=== PATIENT | female | born 1995 | race Caucasian/White ===

== ENCOUNTER 2020-10-10 14:17 | Emergency (ER) | payer BC, SELFPAY ==
--- NOTE | 2020-10-10 15:06 | PC.NURSE ---
upon calling pt to triage - refused triage - states I have 3 kids at home I need to take care of, a ride is coming for me
== END 2020-10-10 15:06 | disposition left against medical advice (07) ==
DX: Z53.21 Procedure and treatment not carried out due to patient leaving prior to being seen by health care provider (principal)
CPT/HCPCS: 99199

== ENCOUNTER 2020-10-13 19:54 | Emergency (ER) | payer BC, SELFPAY ==
--- NOTE | ~2020-10-13 | CT_ITS ---
EXAMINATION: CT brain wo con DATE: 10/13/2020 20:55 INDICATION: Generalized headache. TECHNIQUE: Computed tomography (CT) of the head was performed without intravenous contrast. The mA wa s adjusted according to patient size. Iterative reconstruction technique was employed. The dose-lengt h product was 605.33 mGy-cm. COMPARISON: None FINDINGS: There is no intracranial hemorrhage, acute infarction, or abnormal intracranial mass lesion . The ventricles are normal in size. There is mucosal thickening in the ethmoid sinuses. The orbits a re normal. The mastoid air cells are normal. IMPRESSION: 1. Normal brain. Reviewed, dictated and finalized at location A. IMPRESSION: 1. Normal brain.
--- NOTE | ~2020-10-13 | XR_ITS ---
EXAMINATION: XR chest 2V DATE: 10/13/2020 21:00 INDICATION: Shortness of breath. TECHNIQUE: Frontal and lateral views of the chest were obtained. COMPARISON: Chest 2 views 12/19/2018 FINDINGS: The chest demonstrates clear lungs without pneumonia, pleural effusion, or pneumothorax. Th e heart size is normal. Surgical clips in the right upper quadrant are likely from cholecystectomy. IMPRESSION: 1. No acute cardiopulmonary disease. Reviewed, dictated and finalized at location A.
[2020-10-13 19:56] VITALS: BP 117/77; PULSE 116; RESP 18; TEMP 39.1; O2SAT 100
[2020-10-13 21:00] LABS: Basophils Percent Auto 0.4 % (0.2-1.2); Eosinophils Percent Auto 0.2 % (0-4.4); Hematocrit 40.5 % (37.0-47.0); Immature Granulocyte Absolute 0.04 K/mm3 (0.00-0.031); Immature Granulocyte Percent A 0.4 % (0-0.5); Lymphocytes Absolute Auto 1.57 K/mm3 (0.9-3.2); Mean Corpuscular HGB Conc 32.1 g/dl (32-36); Mean Corpuscular Hemoglobin 25.2 pg (26-34); Mean Corpuscular Volume 78.5 fl (80-100); Mean Platelet Volume 9.6 fl (7.4-10.4); Monocytes Absolute Auto 1.3 K/mm3 (0.1-0.6); Monocytes Percent Auto 12.2 % (2.6-8.5); Neutrophils Absolute Auto 7.5 K/mm3 (1.3-6.7); Neutrophils Percent Auto 71.8 % (45.5-73.1); Platelet Count Result 327 k/mm3 (150-375); Red Blood Count 5.16 M/mm3 (4.2-5.4); Red Cell Distribution Width 15.4 % (11.5-14.5); White Blood Count 10.5 K/mm3 (4.5-10.0)
[2020-10-13 21:11] LABS: Lactic Acid Reflex 1.3 mmol/L (0.7-2.1)
[2020-10-13 21:18] LABS: Alanine Aminotransferase 74 U/L (4-35); Albumin Level 4.7 g/dL (3.5-5.1); Alkaline Phosphatase 105 U/L (38-126); Anion Gap 13 mmol/L (8-16); Aspartate Amino Transferase 64 U/L (14-36); Bilirubin,Total 0.8 mg/dL (0.2-1.3); Blood Urea Nitrogen 16 mg/dL (7-17); Calcium 9.8 mg/dL (8.4-10.2); Carbon Dioxide 26 mmol/L (22-30); Chloride 94 mmol/L (98-107); Estimated Glomerular Filt Rate > 60; Glucose 99 mg/dL (65-110); Potassium 3.8 mmol/L (3.4-5.0); Sodium 133 mmol/L (137-145)
[2020-10-13] MEDS: SODIUM CHLORIDE 0.9% IV 1,000 ML 999 ML IV CONT ×2 (21:18→23:21)
[2020-10-13] MEDS: PROCHLORPERAZINE EDISYLATE 10 MG/2 ML VIAL IV PUSH (21:18)
--- NOTE | 2020-10-13 21:29 | ED.FEVER ---
HPI - Fever General Chief Complaint: Fever Stated Complaint: backache, headache, fever 102 Time Seen by Provider: 10/13/20 20:20 History of Present Illness HPI Narrative: Patient presents with headache, fever, back pain, cough, shortness of breath. Patient is also reporting diffuse body aches. Reports has had symptoms for the past week and has been getting progressively worse and she can no longer take it so she came in for evaluation. Her headache is achy, constant, worse with bright lights or loud noises does radiate to her neck. She also reports right lower back pain and suprapubic abdominal pain. She denies urinary symptoms. She denies focal chest pain but does report some shortness of breath and cough. She reports multiple prior orthopedic surgeries and history of gastritis but does not take medications on a regular basis Related Data Allergies Allergy/AdvReac Type Severity Reaction Status Date / Time bee venom protein (honey bee) Allergy Anaphylaxis Verified 12/19/18 16:49 morphine Allergy ITCH Verified 02/12/13 23:58 Review of Systems Review of Systems: CONSTITUTIONAL: Reports fevers and chills EYES: Denies visual changes, redness, or discharge. ENT: Denies rhinorrhea, congestion, sore throat, or otalgia. CARDIOVASCULAR: Denies chest pain, palpitations, or edema. RESPIRATORY: Patient ports cough and shortness of breath GASTROINTESTINAL: Denies nausea, vomiting, or diarrhea. GENITOURINARY: Denies dysuria or hematuria. SKIN: Denies rash or itching. MUSCULOSKELETAL: Reports low back pain and diffuse myalgia NEUROLOGIC: Denies numbness, dizziness, or weakness. PSYCHIATRIC: Denies anxiety or depression. All systems reviewed & are unremarkable except as noted in HPI and below PMFSH Past Medical History Medical History (Updated 10/14/20 @ 01:06 by Felipe Leiva MD) Bilateral ankle fractures Toe fracture UTI (urinary tract infection) Wears glasses Wrist fracture, bilateral Surgical History Surgical History History of cholecystectomy Hx of bilateral hip replacements Hx of section x3 Social History Social History Smoking status: Never smoker Alcohol intake: never Substance use type: marijuana Gender identity (if verbalized by the patient): Female Exam Narrative: GENERAL: Well-appearing, well-nourished, and in no acute distress. HEAD: Normocephalic, atraumatic. EYES: PERRLA and EOMI. ENT: Nares clear, no rhinorrhea or epistaxis. Mucous membranes moist. NECK: Supple. No masses. No JVD CHEST: Clear to auscultation. No respiratory distress. No wheezes rales or rhonchi HEART: Regular tachycardia. No murmur heard. Normal peripheral pulses. ABDOMEN: Mild suprapubic tenderness soft, nondistended, normal active bowel sounds. BACK: CVA tenderness on the right EXTREMITIES: Normal range of motion. No edema. SKIN: Warm, dry, no rash. NEURO: Cranial nerves II through XII are intact 5 out of 5 strength in all extremities sensation intact to light touch in all extremities alert and oriented x3. PSYCH: Normal mood and affect. Course Reevaluation(s) Reevaluation #1: Patient is sleeping comfortably easily aroused reports feeling improved. Outpatient plan discussed with patient she is comfortable with outpatient antibiotics. Date: 10/14/20 Time: 01:04 Vital Signs Vital signs: Vital Signs Temperature 39.1 C H 10/13/20 19:56 Pulse Rate 116 H 10/13/20 19:56 Respiratory Rate 18 10/13/20 19:56 Blood Pressure 117/77 10/13/20 19:56 Pulse Oximetry 100 10/13/20 19:56 Temperature 36.9 C 10/13/20 22:24 Pulse Rate 77 10/14/20 01:38 Respiratory Rate 18 10/14/20 01:38 Blood Pressure 101/64 10/14/20 01:38 Pulse Oximetry 98 10/14/20 01:38 MDM - Fever MDM Narrative Medical decision making narrative: H&P as above, vss, pt looks clinically well, exam with mild CVA ten
[2020-10-13 22:14] LABS: CRP 38.9 mg/dL (<1.0)
[2020-10-13 22:24] VITALS: BP 105/62; PULSE 89; RESP 18; TEMP 36.9; O2SAT 98
[2020-10-13 23:19] VITALS: BP 110/68; PULSE 73; RESP 16; O2SAT 95
[2020-10-14 00:21] VITALS: BP 100/65; PULSE 69; RESP 16; O2SAT 100
[2020-10-14 00:25] LABS: Add Urine Microscopic? YES; Appearance Urine Clear (Clear); Bacteria Urine Trace /hpf; Bilirubin Urine Negative (Negative); Blood Urine 1+ (Negative); Color Urine Yellow (Yellow); Glucose Urine UA Negative (Negative); Ketones Urine Negative (Negative); Leukocyte Esterase Ur Trace LEU/UL (Negative); Nitrate Urine Negative (Negative); Protein Urine 1+ mg/dL (Negative); Specific Grav Ur 1.012 (1.001-1.035); Squamous Epithelial Cell Urine Rare /hpf (Few)
[2020-10-14 00:57] LABS: EDCOVIDSCREEN Negative (Negative)
[2020-10-14 01:38] VITALS: BP 101/64; PULSE 77; RESP 18; O2SAT 98
== END 2020-10-14 02:09 | disposition home or self-care (01) ==
PROVIDERS: Emergency Provider Emergency Medicine
DX: R51.9 Headache, unspecified (principal); N12 Tubulo-interstitial nephritis, not specified as acute or chronic; Z20.822 Contact with and (suspected) exposure to COVID-19; Z87.440 Personal history of urinary (tract) infections; Z96.643 Presence of artificial hip joint, bilateral
CPT/HCPCS: 36415; 70450; 71046; 80053; 81001; 83605; 85025; 86140; 87040; 87077; 87086; 87426; 96361; 96365; 96375; 99284; C9803; J0131; J0780; J7030

== ENCOUNTER 2024-07-17 15:12 | Inpatient (IN) | payer BC, SELFPAY ==
[2024-07-17] VITALS (18 sets, daily range): BP systolic 113–135; BP diastolic 72–95; PULSE 100–107; RESP 13–17; TEMP 34.6–36.7; O2SAT 95–100; BMI 22.8
--- NOTE | ~2024-07-17 | XR_ITS ---
EXAMINATION: XR chest 1V portable Exam Date/Time: 07/17/2024 15:20 CDT HISTORY: AMS Comparison: 10/13/2020. RESULT: Lines, tubes, and devices: Cholecystectomy clips. Lungs and pleura: Clear. Cardiomediastinal silhouette: Stable. Other: No acute osseous or upper abdominal finding. IMPRESSION: No acute cardiopulmonary process. Reviewed, dictated and finalized at location K.
--- NOTE | ~2024-07-17 | CT_ITS ---
EXAMINATION: CT facial & cervical spine wo DATE: 07/17/2024 16:49 INDICATION: trauma TECHNIQUE: Computed tomography (CT) of the maxillofacial region and cervical spine was performed with out intravenous contrast. Automated exposure control and iterative reconstruction technique were empl oyed. The dose-length product was 345.90 mGy-cm. COMPARISON: None FINDINGS: CERVICAL: The head is tilted and rotated significantly towards the left. Initial imaging of the face excluded p ortions of the face from the [id number] and repeat images were obtained. Vertebral Body Alignment: Intact. Craniocervical and atlantoaxial alignment: No significant degenerative change. Alignment intact. Osseous structures/fracture: No evidence of a lytic or blastic process in the visualized spine. No e vidence of acute fracture. Cervical soft tissues: The paraspinal soft tissues planes are maintained. Enlarged bilateral palatine tonsils. Small area of centrilobular groundglass opacities in the right upper lobe. Degenerative changes: No significant degenerative changes. FACE: Soft Tissues: Small left frontal hematoma. Facial bones: No acute fracture. No lytic or blastic process. Eyes: The globes are intact. The soft tissue planes of the orbits are maintained. Paranasal Sinuses: Ethmoid and right maxillary mucosal thickening, with likely obstruction of the ri ght OMU. Foreign Bodies: No radiopaque foreign bodies. Other Findings: Dental caries and periodontal disease. IMPRESSION: No acute fracture or traumatic malalignment in the cervical spine. No acute facial bone fracture. Centrilobular ground glass opacities in the right upper lobe, may represent a focus of infection/infl ammation. Dental caries and periodontal disease. [place] tonsillar enlargement. Mucoperiosteal sinus disease with right OMU obstruction. Reviewed, dictated and finalized at location K. IMPRESSION: No acute fracture or traumatic malalignment in the cervical spine. No acute fac ial bone fracture. Centrilobular ground glass opacities in the right upper lobe, may represent a f ocus of infection/inflammation. Dental caries and periodontal disease. [place] tonsillar enlargement. Mucoperiosteal sinus disease with right OMU obstruction.
--- NOTE | ~2024-07-17 | CT_ITS ---
EXAMINATION: CT brain wo con DATE: 07/17/2024 16:36 INDICATION: AMS . TECHNIQUE: Computed tomography (CT) of the head was performed without intravenous contrast. The mA wa s adjusted according to patient size. Iterative reconstruction technique was employed. The dose-lengt h product was 681.00 mGy-cm. COMPARISON: 10/13/2020. FINDINGS: Exam limited by oblique, nonstandard positioning and rotation. No acute intracranial hemorrhage or extra-axial fluid collection. No hydrocephalus, mass, or herniation. No acute ischemic infarct. Unremarkable dural venous sinus attenuation. No acute osseous abnormality. Bilateral ethmoid and right maxillary mucosal thickening, the remaining aerated spaces are clear. IMPRESSION: No acute intracranial process. Reviewed, dictated and finalized at location K.
--- NOTE | 2024-07-17 15:33 | ECG_ITS ---
Test Date: 2024-07-17 15:33:59 Measurements Intervals [place] Rate: 99 P: 78 [place]: 119 QRS: 78 QRSD: 109 T: 47 QT: 370 QTc: 476 Interpretive Statements SINUS RHYTHM WITH SHORT [place] INTERVAL POSSIBLE LEFT ATRIAL ENLARGEMENT BORDERLINE ST-T WAVE ABNORMALITY- INFERIOR LEADS BASELINE ARTIFACT- I, II, III, AVR, AVL, AVF, V1-V2 BORDERLINE ECG No previous ECG available for comparison Electronically Signed On 07-18-2024 07:13:59 CDT by Shahbaz Melara D.O.
[2024-07-17 15:34] LABS: Glucose Point of Care 131 mg/dl (65-105)
[2024-07-17 15:36] LABS: BEDSIDEPREGUCG Negative (Negative)
[2024-07-17 15:39] LABS: Basophils Percent Auto 0.5 % (0.2-1.2); Eosinophils Percent Auto 0.4 % (0-4.4); Hematocrit 40.1 % (37.0-47.0); Hemoglobin 12.4 g/dL (12.0-15.0); Immature Granulocyte Absolute 0.03 K/mm3 (0.00-0.031); Immature Granulocyte Percent A 0.4 % (0-0.5); Lymphocytes Absolute Auto 2.31 K/mm3 (0.9-3.2); Mean Corpuscular HGB Conc 30.9 g/dl (32-36); Mean Corpuscular Hemoglobin 25.8 pg (26-34); Mean Corpuscular Volume 83.5 fl (80-100); Mean Platelet Volume 9.4 fl (7.4-10.4); Monocytes Absolute Auto 0.4 K/mm3 (0.1-0.6); Monocytes Percent Auto 4.8 % (2.6-8.5); Neutrophils Absolute Auto 5.8 K/mm3 (1.3-6.7); Neutrophils Percent Auto 66.9 % (45.5-73.1); Platelet Count Result 389 k/mm3 (150-375); Red Cell Distribution Width 15.4 % (11.5-14.5); White Blood Count 8.6 K/mm3 (4.5-10.0)
--- NOTE | 2024-07-17 15:41 | ED.GENADULT ---
HPI - General Adult General Chief complaint: Overdose Stated complaint: responsive to painful stimuli History of Present Illness HPI narrative: Patient is a 29-year-old female who presents ER with altered mental status. Significant other heard a crash upstairs at 3:30 p.m.. He has been pouring water on her to try to wake her up but she has remained unresponsive. She localizes to noxious stimuli and is moaning. She has history of fentanyl abuse and receive 4 mg of Narcan by EMS without any change in status. There is some bruising to left face and blood intraorally from the fall. Patient hypothermic on arrival. Related Data Allergies Allergy/AdvReac Type Severity Reaction Status Date / Time bee venom protein (honey bee) Allergy Anaphylaxis Verified 12/19/18 16:49 morphine Allergy ITCH Verified 02/12/13 23:58 Review of Systems Review of Systems: ROS unobtainable: Yes unobtainable due to mental status PMFSH Past Medical History Medical History (Updated 07/17/24 @ 17:59 by Kwaku Bains MD) Wrist fracture, bilateral Bilateral ankle fractures Toe fracture UTI (urinary tract infection) Wears glasses Surgical History Surgical History Hx of bilateral hip replacements Hx of section x3 History of cholecystectomy Social History Social History Smoking status: Never smoker Alcohol intake: never Substance use type: other Gender identity (if verbalized by the patient): Female Exam Narrative: GENERAL: Ill-appearing, well-nourished, and in no acute distress. HEAD: Normocephalic, contusion left forehead and supraorbital ridge.. EYES: PERRL and EOMI. ENT: Mucous membranes moist. Small puncture left lateral upper lip near the buccal margin without loose dentition or obvious new dental fracture. NECK: Supple. CHEST: Clear to auscultation. No respiratory distress. HEART: Tachycardic and regular. Normal peripheral pulses. ABDOMEN: Soft, nontender, nondistended. EXTREMITIES: Normal range of motion. No edema. SKIN: Warm, dry, no rash. NEURO: Patient is another weight neuro alert but she repositions herself moving all extremities on her own. She moans and localizes to noxious stimuli. Course Course Emergency Course: 1757: Patient accepted to the ICU by Dr. Grewal. He request patient have Zosyn for antibiotic coverage of the possible infiltrate in the lung and also would like the patient be on 0.45% normal saline with 20 mEq of potassium at a rate of 100 mL/hr. 1818: Accepted by hospitalist service. Vital Signs Vital signs: Vital Signs Temperature 94.9 F L 07/17/24 15:11 Pulse Rate 100 07/17/24 15:11 Respiratory Rate 13 07/17/24 15:11 Blood Pressure 120/78 07/17/24 15:11 Pulse Oximetry 98 07/17/24 15:11 Oxygen Delivery Room Air 07/17/24 15:11 Temperature 95.2 F L 07/17/24 16:38 Pulse Rate 4 L 07/17/24 15:34 Respiratory Rate 15 07/17/24 15:34 Blood Pressure 113/84 07/17/24 15:34 Pulse Oximetry 100 07/17/24 15:34 Oxygen Delivery Room Air 07/17/24 15:11 Medical Decision Making Vital Signs Vital Signs: Vital Signs Temperature 94.9 F L 07/17/24 15:11 Pulse Rate 100 07/17/24 15:11 Respiratory Rate 13 07/17/24 15:11 Blood Pressure 120/78 07/17/24 15:11 Pulse Oximetry 98 07/17/24 15:11 Oxygen Delivery Room Air 07/17/24 15:11 Temperature 95.2 F L 07/17/24 16:38 Pulse Rate 4 L 07/17/24 15:34 Respiratory Rate 15 07/17/24 15:34 Blood Pressure 113/84 07/17/24 15:34 Pulse Oximetry 100 07/17/24 15:34 Oxygen Delivery Room Air 07/17/24 15:11 Lab Data 07/17/24 15:33 07/17/24 15:33 Labs: Lab Results 07/17/24 07/17/24 07/17/24 Range/Units 15:21 15:33 16:58 WBC 8.6 (4.5-10.0) K/mm3 RBC 4.80 (4.2-5.4) M/mm3 Hgb 12.4 (12.0-15.0) g/dL Hct 40.1 (37.0-47.0) % MCV 83.5 (80-100) fl MCH 25.8 L (26-34) pg MCHC 30.9 L (32-36) g/dl RDW 15.4 H (11.5-14.5) % Plt Count 389 H (150-375) k/mm3 MPV 9.4 (7.4-10.4) fl Immature Gran % (Auto) 0.4 (0-0.5) % Neut % (Auto) 66.9 (45.5-73.1) % Lymph % (Auto) 27.0 (18.3-44.2) % [place] % (Auto) 4.8 (2.6-8.5) % Eos % (Auto) 0.4 (0-4.4) % Baso % (Auto) 0.5 (0.2-1.2) % Lymph # (Auto) 2.31 (0.9-3.2) K/mm3 [place] # (Auto) 0.4 (0.1-0.6) K/mm3 Eos # (Auto) 0.0 (0-0.3) K/mm3 Baso # (Auto) 0.0 (0.0-0.1) K/mm3 Abs Immat Gran (auto) 0.03 (0.00-0.031) K/mm3 Absolute Neuts (auto) 5.8 (1.3-6.7) K/mm3 Absolute Nucleated RBC 0.000 (0.0-0.012) K/mm3 Nucleated RBC % 0.0 (0.0-0.2) % PT 14.1 (11.1-14.7) Seconds INR 1.1 APTT 24.3 (22.3-36.8) Seconds Methemoglobin 0.1 (0-1.5) %THb Sodium 139 (137-145) mmol/L Potassium 3.5 (3.4-5.0) mmol/L Chloride 105 (98-107) mmol/L Carbon Dioxide 19 L (22-30) mmol/L Anion Gap 15 H (4-12) mmol/L BUN 19 H (7-17) mg/dL Creatinine 0.93 (0.7-1.0) mg/dL Estim Creat Clear Calc Not Reportable Estimated GFR > 60 (59 - ) Glucose 156 H (65-110) mg/dL POC Capillary Glucose 131 H (65-105) mg/dl Lactic Acid 5.5 H* (0.7-2.0) mmol/L Calcium 9.1 (8.4-10.2) mg/dL Total Bilirubin 0.6 (0.2-1.3) mg/dL AST 37 H (14-36) U/L ALT 23 (6-35) U/L Alkaline Phosphatase 44 (38-126) U/L Ammonia Total Protein 8.0 (6.3-8.2) g/dL Albumin 4.6 (3.5-5.1) g/dL TSH 1.720 (0.465-4.680) uIU/mL Urine Color Yellow (Yellow) Urine Appearance Clear (Clear) Urine pH 6.0 (5.0-9.0) Ur Specific [place] 1.029 (1.001-1.035) Urine Protein 1+ H (Negative) mg/dL Urine Glucose (UA) Negative (Negative) mg/dL Urine Ketones Negative (Negative) mg/dL Ur Blood (Man) 2+ H (Negative) Urine Nitrate Negative (Negative) Urine Bilirubin Negative (Negative) Urine Urobilinogen 0.2 (<2.0) mg/dL Leukocyte Esterase Rfl Negative (Negative) GENNARO/UL Urine RBC 21-50 H (0-2) /hpf Urine WBC 0-5 (0-3) /hpf Ur Squamous Epith Cells Occasional (Few) /hpf Urine Bacteria Rare /hpf Urine Casts 0-2 POC Urine HCG, Qual Negative (Negative) Nasal MRSA (PCR) Salicylates < 1.0 L (2-20) mg/dL Urine Opiates Screen Negative (Negative) Urine Methadone Screen Negative (Negative) Acetaminophen < 10 L (10-30) ug/mL Ur Barbiturates Screen Negative (Negative) Ur Phencyclidine Scrn Negative (Negative) Ur Amphetamine Screen Positive A (Negative) U Benzodiazepines Scrn Negative (Negative) Urine Cocaine Screen Negative (Negative) U Cannabinoids Screen Negative (Negative) Ethyl Alcohol < 10 (<10) mg/dL 07/17/24 Range/Units 18:03 WBC (4.5-10.0) K/mm3 RBC (4.2-5.4) M/mm3 Hgb (12.0-15.0) g/dL Hct (37.0-47.0) % MCV (80-100) fl MCH (26-34) pg MCHC (32-36) g/dl RDW (11.5-14.5) % Plt Count (150-375) k/mm3 MPV (7.4-10.4) fl Immature Gran % (Auto) (0-0.5) % Neut % (Auto) (45.5-73.1) % Lymph % (Auto) (18.3-44.2) % [place] % (Auto) (2.6-8.5) % Eos % (Auto) (0-4.4) % Baso % (Auto) (0.2-1.2) % Lymph # (Auto) (0.9-3.2) K/mm3 [place] # (Auto) (0.1-0.6) K/mm3 Eos # (Auto) (0-0.3) K/mm3 Baso # (Auto) (0.0-0.1) K/mm3 Abs Immat Gran (auto) (0.00-0.031) K/mm3 Absolute Neuts (auto) (1.3-6.7) K/mm3 Absolute Nucleated RBC (0.0-0.012) K/mm3 Nucleated RBC % (0.0-0.2) % PT (11.1-14.7) Seconds INR APTT (22.3-36.8) Seconds Methemoglobin (0-1.5) %THb Sodium (137-145) mmol/L Potassium (3.4-5.0) mmol/L Chloride (98-107) mmol/L Carbon Dioxide (22-30) mmol/L Anion Gap (4-12) mmol/L BUN (7-17) mg/dL Creatinine (0.7-1.0) mg/dL Estim Creat Clear Calc Estimated GFR (59 - ) Glucose (65-110) mg/dL POC Capillary Glucose (65-105) mg/dl Lactic Acid Pending (0.7-2.0) mmol/L Calcium (8.4-10.2) mg/dL Total Bilirubin (0.2-1.3) mg/dL AST (14-36) U/L ALT (6-35) U/L Alkaline Phosphatase (38-126) U/L Ammonia Pending Total Protein (6.3-8.2) g/dL Albumin (3.5-5.1) g/dL TSH (0.465-4.680) uIU/mL Urine Color (Yellow) Urine Appearance (Clear) Urine pH (5.0-9.0) Ur Specific [place] (1.001-1.035) Urine Protein (Negative) mg/dL Urine Glucose (UA) (Negative) mg/dL Urine Ketones (Negative) mg/dL Ur Blood (Man) (Negative) Urine Nitrate (Negative) Urine Bilirubin (Negative) Urine Urobilinogen (<2.0) mg/dL Leukocyte Esterase Rfl (Negative) GENNARO/UL Urine RBC (0-2) /hpf Urine WBC (0-3) /hpf Ur Squamous Epith Cells (Few) /hpf Urine Bacteria /hpf Urine Casts POC Urine HCG, Qual (Negative) Nasal MRSA (PCR) Pending Salicylates (2-20) mg/dL Urine Opiates Screen (Negative) Urine Methadone Screen (Negative) Acetaminophen (10-30) ug/mL Ur Barbiturates Screen (Negative) Ur Phencyclidine Scrn (Negative) Ur Amphetamine Screen (Negative) U Benzodiazepines Scrn (Negative) Urine Cocaine Screen (Negative) U Cannabinoids Screen (Negative) Ethyl Alcohol (<10) mg/dL ABG Data ABG results: 07/17/24 16:58 Puncture Site Right radial ABG pH 7.391 ABG pCO2 30.7 L ABG pO2 76.9 L ABG PO2/FiO2 Ratio 3.66 ABG HCO3 18.2 L ABG O2 Saturation 95.5 ABG O2 Content 15.6 L ABG Base Excess -5.7 A-a Gradient 36.1 Oxyhemoglobin 94.4 Carboxyhemoglobin 0.7 Reduced Hemoglobin 4.8 Total Hemoglobin 11.7 L O2 Delivery Device Room air O2 Liters/Min Not Reportable FiO2 21 Imaging Data Radiologist's impression: ITS Impressions Chest X-Ray 07/17/24 15:31 IMPRESSION: No acute cardiopulmonary process. Head CT 07/17/24 16:37 IMPRESSION: No acute intracranial process. Head/Cervical Spine/Facial Bones CT 07/17/24 17:08 IMPRESSION: No acute fracture or traumatic malalignment in the cervical spine. No acute facial bone fracture. Centrilobular ground glass opacities in the right upper lobe, may represent a focus of infection/inflammation. Dental caries and periodontal disease. [place] tonsillar enlargement. Mucoperiosteal sinus disease with right OMU obstruction. ECG Data EKG #1: ECG completion date: 07/17/24 ECG completion time: 15:33 EKG Interpretation: normal rate (99), sinus rhythm, non-specific ST changes, normal QRS, normal QT and NL axis Critical Care Time Critical Care Time Critical Care Time: Yes Total Critical Care Time: 35 Discharge Plan Discharge Clinical Impression: Drug overdose, Pneumonia, Hypothermia Patient Disposition: Still a Patient Condition: Serious Patient Language: Cuban Prescriptions: No Action cephalexin 500 mg capsule 500 mg PO Q8H 10 Days Qty: 30 0RF sucralfate [Carafate] 1 gram tablet 1 gm PO Q6H Qty: 40 0RF ondansetron HCl [Zofran] 4 mg tablet 4 mg PO Q6H PRN (Reason: nausea and vomiting) Qty: 14 0RF pantoprazole [Protonix] 40 mg tablet,delayed release (DR/EC) 40 mg PO QAM 28 Days Qty: 28 0RF nitrofurantoin monohyd/m-cryst [Macrobid] 100 mg capsule 100 mg PO Q12H 7 Days Qty: 14 0RF Rx Instructions: must administer with a meal/food Follow-up/Referrals: PHYSICIAN,RN PRODUCTION [Primary Care Provider] -
[2024-07-17 15:46] LABS: Add Urine Microscopic? YES; Appearance Urine Clear (Clear); Bacteria Urine Rare /hpf; Bilirubin Urine Negative (Negative); Blood Urine 2+ (Negative); Color Urine Yellow (Yellow); Glucose Urine UA Negative (Negative); Ketones Urine Negative (Negative); Leukocyte Esterase Ur Negative LEU/UL (Negative); Nitrate Urine Negative (Negative); Non Pathogenic Casts 0-2; Protein Urine 1+ mg/dL (Negative); RBC Urine 21-50 /hpf (0-2); Specific Grav Ur 1.029 (1.001-1.035); Squamous Epithelial Cell Urine Occasional /hpf (Few); Urobilinogen Urine 0.2 mg/dL (<2.0); WBC Urine 0-5 /hpf (0-3)
[2024-07-17 15:50] LABS: Acetaminophen < 10 ug/mL (10-30); Ethanol < 10 mg/dL (<10); Salicylate < 1.0 mg/dL (2-20)
[2024-07-17 15:51] LABS: Lactic Acid Reflex 5.5 mmol/L (0.7-2.0)
[2024-07-17 15:52] LABS: Alanine Aminotransferase 23 U/L (6-35); Albumin Level 4.6 g/dL (3.5-5.1); Alkaline Phosphatase 44 U/L (38-126); Anion Gap 15 mmol/L (4-12); Aspartate Amino Transferase 37 U/L (14-36); Bilirubin,Total 0.6 mg/dL (0.2-1.3); Blood Urea Nitrogen 19 mg/dL (7-17); Calcium 9.1 mg/dL (8.4-10.2); Carbon Dioxide 19 mmol/L (22-30); Chloride 105 mmol/L (98-107); Estimated Glomerular Filt Rate > 60; Glucose 156 mg/dL (65-110); Potassium 3.5 mmol/L (3.4-5.0); Sodium 139 mmol/L (137-145)
[2024-07-17 15:57] LABS: INR 1.1; Partial Thromboplastin Time 24.3 Seconds (22.3-36.8); Prothrombin Time 14.1 Seconds (11.1-14.7)
[2024-07-17] MEDS: SODIUM CHLORIDE 0.9% IV 1,000 ML 999 ML IV CONT ×2 (16:30→16:45)
[2024-07-17] MEDS: SODIUM CHLORIDE 0.9% IV 100 ML 999 ML IV CONT (16:59)
[2024-07-17 17:00] LABS: Barbiturate Screen Urine Negative (Negative); Benzodiazepines Screen Urine Negative (Negative); Cannabinoid Screen Urine Negative (Negative); Cocaine Screen Urine Negative (Negative); Methadone Screen Urine Negative (Negative); Opiate Screen Urine Negative (Negative); Phencyclidine Screen Urine Negative (Negative)
[2024-07-17 17:02] LABS: Alveolar/Arterial O2 Gradient 36.1 mmHg; Base Excess ABG -5.7 mEq/l (+/-2.0); Carboxyhemoglobin 0.7 % THb (0-2.0); Fractional Inspired Oxygen 21 %; HCO3 ABG 18.2 mEq/l (22.0-26.0); Methemoglobin ABG 0.1 %THb (0-1.5); Oxygen Content ABG 15.6 %vol (16.0-22.0); Oxygen Saturation ABG 95.5 % (95.0-100.0); Oxyhemoglobin 94.4 % THb (90.0-100.0); PCO2 ABG 30.7 mmHg (35.0-45.0); PO2 ABG 76.9 mmHg (80.0-100.0); PO2 FiO2 Ratio Arterial Blood 3.66 %; Reduced Hemoglobin 4.8 %THb (0-5.0); Total Hemoglobin 11.7 g/dL (12.0-18.0); pH ABG 7.391 (7.350-7.450)
[2024-07-17 17:03] LABS: Device ROOM AIR; Modified Allen's Test Pass; Site Drawn RIGHT RADIAL
[2024-07-17 17:37] LABS: Reflex Lactic Acid Yes or No Add Lactic
[2024-07-17 17:42] LABS: Amphetamine Screen Urine Positive (Negative)
[2024-07-17] MEDS: PIPERACILLN/TAZ 3.375GM/NS50ML 3.375 GM/50 ML BAG IVPB ×2 (18:00→23:47)
[2024-07-17 18:16] LABS: Lactic Acid 2.5 mmol/L (0.7-2.0)
[2024-07-17 18:17] LABS: Ammonia < 9 umol/L (9-30)
--- NOTE | 2024-07-17 18:48 | ADMGEN ---
This patient, Raya Ricketts, was admitted to Intensive Care Unit-1 at 1848. Patient/family oriented to hospital policies and general routines including ID bracelet, bed and alarms, visiting hours, pain management, procedures, bathroom and other care routines, personal items, smoking policy, room service/diet, and visiting hours. Information on how to activate the Rapid Response Team has been discussed. Patient/Family are encouraged to report perceived risks to care and to ask questions if they do not understand what they are told or what they should do.
--- NOTE | 2024-07-17 18:58 | P.HP_ITS ---
H&P: HPI History of Present Illness Date/Time: 07/17/24 18:58 Chief Complaint: Found unresponsive Narrative: 29-year-old female with history of fentanyl abuse found unresponsive by her boyfriend. On arrival to the emergency room her temperature was 94.9?. HPI is limited as patient is drowsy Her lab work shows lactic acidosis of 5.5 with repeat being 2.5, ABG shows hypoxia UA is noninfective with RBCs, tox screen is positive for amphetamine. Head CT is negative for acute process, CT face and spine are negative for acute process however she has severe periodontal disease. Patient was started on Zosyn for likely aspiration pneumonia and given 2 L IV bolus for sepsis. Patient will be admitted to the ICU for further monitoring. Review of Systems Review of Systems: ROS unobtainable: Yes unobtainable due to mental status PMFSH Past Medical History Medical History (Updated 07/17/24 @ 19:04 by Carin Ross APRN) Wrist fracture, bilateral Bilateral ankle fractures Toe fracture UTI (urinary tract infection) Wears glasses Surgical History Surgical History Hx of bilateral hip replacements Hx of section x3 History of cholecystectomy Family History Family History (Updated 07/17/24 @ 20:03 by Chao Silva RN) Other Unknown family medical history Social History Social History Smoking status: Never smoker Alcohol intake: current Substance use: current Substance use type: other Gender identity (if verbalized by the patient): Female Spiritual care concerns: No Meds Home Medications and Allergies Home Medications ?Medication ?Instructions ?Recorded ?Confirmed ?Type pantoprazole 40 mg tablet,delayed 40 mg PO QAM 4 weeks #28 tabs 12/19/18 07/17/24 Rx release (Protonix) sucralfate 1 gram tablet (Carafate) 1 gm PO Q6H #40 tabs 12/19/18 07/17/24 Rx Allergies Allergy/AdvReac Type Severity Reaction Status Date / Time bee venom protein (honey bee) Allergy Anaphylaxis Verified 12/19/18 16:49 morphine Allergy ITCH Verified 02/12/13 23:58 Vital Signs Vital Signs - 24 hr 07/17/24 15:11 07/17/24 15:25 07/17/24 15:34 Temperature 94.9 F L Pulse Rate 100 100 Respiratory Rate 13 17 Blood Pressure 120/78 Pulse Oximetry 98 Oxygen Delivery Room Air 07/17/24 15:34 07/17/24 15:40 07/17/24 15:53 Temperature 94.3 F L 94.6 F L 94.9 F L Pulse Rate 104 H Respiratory Rate 15 Blood Pressure 113/84 Pulse Oximetry 100 Oxygen Delivery 07/17/24 16:08 07/17/24 16:38 07/17/24 16:38 Temperature 95.1 F L 95.2 F L 95.1 F L Pulse Rate 102 H Respiratory Rate 14 Blood Pressure 121/87 Pulse Oximetry 95 Oxygen Delivery 07/17/24 16:46 07/17/24 17:08 07/17/24 17:38 Temperature 95.2 F L 96.3 F L 96.7 F L Pulse Rate 103 H Respiratory Rate 13 Blood Pressure 119/81 Pulse Oximetry 95 Oxygen Delivery 07/17/24 17:55 07/17/24 18:00 07/17/24 18:30 Temperature 96.4 F L 96.8 F L 97.2 F L Pulse Rate 105 H Respiratory Rate 16 Blood Pressure 116/72 Pulse Oximetry 98 Oxygen Delivery Exam Narrative: General: No acute distress drowsy, protecting airway HEENT: normocephalic, atraumatic. Mucous membranes moist. EOMI, PERRLA, bilateral sclera anicteric, no conjunctival injection. Neck supple without JVD, lymphadenopathy, or bruit. Respiratory: clear to ascultation bilaterally. No rales/rhonic/wheezes. Cardiovascular: Regular rate and rhythm, normal S1-S2 upon ascultation. No murmurs, rubs, or clicks. PMI is nondisplaced, capillary refill less than 3 second. Abdomen: Soft, round, no pulsatile masses, nondistended and nontender. No rebound, no guarding. No CVA tenderness, no hepatosplenomegaly. Bowel sounds present to all four quadrants. No high pitch or tinkling sounds, resonant to percussion. Extremities: No cyanosis, clubbing, or edema present. Pulses are palpable 2/2. Active ROM to all four extremities. Neuro: Drowsy, PERRLA. Cranial nerves 2-12 intact without focal deficit. Skin: Warm, dry, and intact, without rash, erythema, or lesion. Psych: Unable to assess H&P: Results Labs Labs: Short CBC 07/17/24 Range/Units 15:33 WBC 8.6 (4.5-10.0) K/mm3 Hgb 12.4 (12.0-15.0) g/dL Hct 40.1 (37.0-47.0) % Plt Count 389 H (150-375) k/mm3 BMP 07/17/24 15:33 Sodium 139 Potassium 3.5 Chloride 105 Carbon Dioxide 19 L BUN 19 H Creatinine 0.93 Glucose 156 H Calcium 9.1 Liver Function 07/17/24 Range/Units 15:33 Total Bilirubin 0.6 (0.2-1.3) mg/dL AST 37 H (14-36) U/L ALT 23 (6-35) U/L Alkaline Phosphatase 44 (38-126) U/L Albumin 4.6 (3.5-5.1) g/dL Urine 07/17/24 Range/Units 15:33 Urine Color Yellow (Yellow) Urine Appearance Clear (Clear) Urine pH 6.0 (5.0-9.0) Ur Specific [place] 1.029 (1.001-1.035) Urine Protein 1+ H (Negative) mg/dL Urine Glucose (UA) Negative (Negative) mg/dL Assessment and Plan Assessment and plan (1) Drug overdose: Code(s): T50.901A - Poisoning by unspecified drugs, medicaments and biological substances, accidental (unintentional), initial encounter Status: Acute Assessment and Plan: Patient has a history of fentanyl abuse Tox screen positive for amphetamines Monitor patient for respiratory depression Narcan as needed Telemetry monitoring (2) Acute respiratory failure with hypoxia: Code(s): J96.01 - Acute respiratory failure with hypoxia Status: Acute Assessment and Plan: Secondary to aspiration pneumonia See plan above (3) Pneumonia: Code(s): J18.9 - Pneumonia, unspecified organism Status: Acute Assessment and Plan: Likely aspiration pneumonia IV Zosyn (4) Hypothermia: Code(s): T68.XXXA - Hypothermia, initial encounter Status: Acute Assessment and Plan: Warming blanket Monitor in ICU Quality VTE Prophylaxis VTE prophylaxis: mechanical ordered Hospitalist MIPS Advance Care Plan I have confirmed that the patient's Advanced Care Plan is present, code status is documented, or surrogate decision maker is listed in patient medical record.: Yes Medication Reconciliation I have utilized all available resources to obtain, update and review the patients current medications (includes all prescriptions, OTC, herbals, cannabis, and nutritional supplements).: Yes
[2024-07-17 19:17] LABS: MRSA (PCR) NOT DETECTED (NOT DETECTE)
--- NOTE | 2024-07-17 20:20 | PC.NURSE ---
talked to Mom Isi Rodrigues for medical history. States pt has history of substance abuse to include meth and fentanyl
[2024-07-17] MEDS: POTASSIUM CHLORIDE INJ 40 MEQ in SODIUM CHLORIDE 0.45% 1,000 ML 100 MEQ IV CONT (21:12)
[2024-07-18] VITALS (12 sets, daily range): BP systolic 99–128; BP diastolic 65–92; PULSE 98–110; RESP 12–16; TEMP 36.4–38; O2SAT 98–100
[2024-07-18 04:26] LABS: Basophils Percent Auto 0.2 % (0.2-1.2); Eosinophils Absolute Auto 0.1 K/mm3 (0-0.3); Eosinophils Percent Auto 0.3 % (0-4.4); Hematocrit 39.1 % (37.0-47.0); Hemoglobin 11.5 g/dL (12.0-15.0); Immature Granulocyte Absolute 0.13 K/mm3 (0.00-0.031); Immature Granulocyte Percent A 0.7 % (0-0.5); Lymphocytes Absolute Auto 1.59 K/mm3 (0.9-3.2); Lymphocytes Percent Auto 8.7 % (18.3-44.2); Mean Corpuscular HGB Conc 29.4 g/dl (32-36); Mean Corpuscular Hemoglobin 25.7 pg (26-34); Mean Corpuscular Volume 87.3 fl (80-100); Mean Platelet Volume 9.2 fl (7.4-10.4); Monocytes Absolute Auto 1.2 K/mm3 (0.1-0.6); Monocytes Percent Auto 6.7 % (2.6-8.5); Neutrophils Absolute Auto 15.3 K/mm3 (1.3-6.7); Neutrophils Percent Auto 83.4 % (45.5-73.1); Platelet Count Result 345 k/mm3 (150-375); Red Blood Count 4.48 M/mm3 (4.2-5.4); Red Cell Distribution Width 15.7 % (11.5-14.5); White Blood Count 18.3 K/mm3 (4.5-10.0)
[2024-07-18 04:43] LABS: Lactic Acid Reflex 1.7 mmol/L (0.7-2.0)
[2024-07-18 05:01] LABS: Anisocytosis 1+; Microcytosis 1+ (NORMAL); Platelet Estimate Adequate (Adequate); Schistocytes None Seen
[2024-07-18 05:06] LABS: Alanine Aminotransferase 12 U/L (6-35); Albumin Level 3.6 g/dL (3.5-5.1); Alkaline Phosphatase 36 U/L (38-126); Anion Gap 8 mmol/L (4-12); Aspartate Amino Transferase 28 U/L (14-36); Bilirubin,Total 0.9 mg/dL (0.2-1.3); Blood Urea Nitrogen 13 mg/dL (7-17); Calcium 8.4 mg/dL (8.4-10.2); Carbon Dioxide 17 mmol/L (22-30); Chloride 111 mmol/L (98-107); Estimated CRCL calculation 87 ml/min; Estimated Glomerular Filt Rate > 60; Glucose 99 mg/dL (65-110); Potassium 4.2 mmol/L (3.4-5.0); Sodium 136 mmol/L (137-145); Total Protein 6.8 g/dL (6.3-8.2)
[2024-07-18] MEDS: PIPERACILLN/TAZ 3.375GM/NS50ML 3.375 GM/50 ML BAG IVPB ×4 (06:24→23:38)
[2024-07-18] MEDS: KCL 20 MEQ/D5/0.45% SOD CHL 1,000 ML 100 ML IV CONT ×2 (08:42→19:01)
[2024-07-18] MEDS: ENOXAPARIN 40 MG/0.4 ML SYRINGE SUB-Q (08:43)
[2024-07-18] MEDS: PANTOPRAZOLE SODIUM IV 40 MG VIAL IV PUSH (08:43)
--- NOTE | 2024-07-18 09:40 | WPDCNINT ---
Assessment and Plan Assessment and plan (1) Toxic encephalopathy: Code(s): G92.9 - Unspecified toxic encephalopathy Status: Acute Assessment and Plan: toxic encephalopathy with no focal neurological deficit likely secondary to drug overdose normal TSH and ammonia unremarkable head CT protecting her airway with adequate ventilation and respiratory rate continue supportive care (2) Hypothermia: Code(s): T68.XXXA - Hypothermia, initial encounter Status: Acute Assessment and Plan: likely secondary to environmental exposure and drug overdose she has been rewarming with a warming blanket (3) Drug overdose: Code(s): T50.901A - Poisoning by unspecified drugs, medicaments and biological substances, accidental (unintentional), initial encounter Status: Acute Assessment and Plan: history of drug abuse and urine drug screen positive for amphetamine supportive care IV fluids (4) Pneumonia: Code(s): J18.9 - Pneumonia, unspecified organism Status: Acute Assessment and Plan: mildly elevated WBC count and imaging suggestive of infiltrates and right upper lobe which could be pneumonia which could be aspiration she has poor dentition and dental caries along with pay order until disease blood culture sent and pending continue Zosyn (5) Lactic acidosis: Code(s): E87.20 - Acidosis, unspecified Status: Acute Assessment and Plan: secondary to drug overdose and sepsis cleared with IV fluids lactic acid level now normal (6) Sepsis: Code(s): A41.9 - Sepsis, unspecified organism Status: Acute Assessment and Plan: secondary to aspiration pneumonia UA normal management as above Plan DVT prophylaxis - Lovenox Stress ulcer prophylaxis - Nutrition -npo Code Status - Full Code Total Critical Care Time - 30 minutes Due to a high probability of clinically significant, life threatening deterioration, the patient required my highest level of preparedness to intervene emergently and I personally spent this critical care time directly and personally managing the patient. This critical care time included obtaining a history; examining the patient; pulse oximetry; ordering and review of studies; arranging urgent treatment with development of a management plan; evaluation of patient's response to treatment; frequent reassessment; and discussions with other providers. It was exclusive of separately billable procedures and treating other patients and teaching time. Please see Assessment and Plan section and the rest of the note for further information on patient assessment and treatment Maintainer Central Office Consult Note Consult date: 07/18/24 Reason for consult: drug overdose, altered mental status HPI: Raya Ricketts is a 29 year old female with history of fentanyl abuse found unresponsive by her boyfriend. and brought to ER. On arrival to the emergency room her temperature was 94.9?. History was limited as patient was drowsy and no other family was available. Workup in the ER showed lactic acidosis of 5.5 with repeat being 2.5, ABG shows hypoxia UA is noninfective with RBCs, tox screen is positive for amphetamine. Head CT is negative for acute process, CT face and spine are negative for acute process however she has severe periodontal disease. Patient was started on Zosyn for likely aspiration pneumonia and given 2 L IV bolus for sepsis. during my evaluation this morning patient is still drowsy but opens her eyes on stimulation but does not answer questions or follow commands. She does move all her extremities and moans and groans on sternal rub. She fights exam and continues to sleep by by changing her position. Review of Systems Review of Systems: ROS unobtainable: Yes unobtainable due to medical condition and unobtainable due to mental status PMFSH Past Medical History Medical History (Updated 07/18/24 @ 09:46 by Pipe Grewal MD) Wrist fracture, bilateral Bilateral ankle fractures Toe fracture UTI (urinary tract infection) Wears glasses Surgical History Surgical History Hx of bilateral hip replacements Hx of section x3 History of cholecystectomy Family History Family History Other Unknown family medical history Social History Social History Smoking status: Never smoker Alcohol intake: current Substance use: current Substance use type: other Gender identity (if verbalized by the patient): Female Spiritual care concerns: No Meds Home Medications and Allergies Home Medications ?Medication ?Instructions ?Recorded ?Confirmed ?Type pantoprazole 40 mg tablet,delayed 40 mg PO QAM 4 weeks #28 tabs 12/19/18 07/17/24 Rx release (Protonix) sucralfate 1 gram tablet (Carafate) 1 gm PO Q6H #40 tabs 12/19/18 07/17/24 Rx Allergies Allergy/AdvReac Type Severity Reaction Status Date / Time bee venom protein (honey bee) Allergy Anaphylaxis Verified 12/19/18 16:49 morphine Allergy ITCH Verified 02/12/13 23:58 Vital Signs Vital Signs - 24 hr 07/17/24 15:11 07/17/24 15:25 07/17/24 15:34 Temperature 34.9 C L Pulse Rate 100 100 Respiratory Rate 13 17 Blood Pressure 120/78 Pulse Oximetry 98 Oxygen Delivery Room Air 07/17/24 15:34 07/17/24 15:40 07/17/24 15:53 Temperature 34.6 C L 34.8 C L 34.9 C L Pulse Rate 104 H Respiratory Rate 15 Blood Pressure 113/84 Pulse Oximetry 100 Oxygen Delivery 07/17/24 16:08 07/17/24 16:38 07/17/24 16:38 Temperature 35.1 C L 35.1 C L 35.1 C L Pulse Rate 102 H Respiratory Rate 14 Blood Pressure 121/87 Pulse Oximetry 95 Oxygen Delivery 07/17/24 16:46 07/17/24 17:08 07/17/24 17:38 Temperature 35.1 C L 35.7 C L 35.9 C L Pulse Rate 103 H Respiratory Rate 13 Blood Pressure 119/81 Pulse Oximetry 95 Oxygen Delivery 07/17/24 17:55 07/17/24 18:00 07/17/24 18:30 Temperature 35.8 C L 36.0 C L 36.2 C L Pulse Rate 105 H Respiratory Rate 16 Blood Pressure 116/72 Pulse Oximetry 98 Oxygen Delivery 07/17/24 18:48 07/17/24 19:00 07/17/24 20:00 Temperature 36.5 C 36.5 C Pulse Rate 107 H Respiratory Rate Blood Pressure 126/80 Pulse Oximetry Oxygen Delivery 07/17/24 20:00 07/17/24 20:00 07/17/24 20:00 Temperature 36.5 C Pulse Rate 107 H 103 H Respiratory Rate 14 Blood Pressure 133/90 Pulse Oximetry 99 Oxygen Delivery Room Air 07/17/24 21:56 07/17/24 21:56 07/17/24 23:46 Temperature 36.7 C Pulse Rate 102 H 103 H 103 H Respiratory Rate 14 14 Blood Pressure 135/95 H Pulse Oximetry 99 100 Oxygen Delivery Room Air 07/17/24 23:46 07/17/24 23:46 07/18/24 02:00 Temperature 36.7 C Pulse Rate 103 H 102 H 103 H Respiratory Rate 14 Blood Pressure 133/89 Pulse Oximetry 100 Oxygen Delivery 07/18/24 02:00 07/18/24 04:00 07/18/24 04:00 Temperature 36.8 C Pulse Rate 103 H 103 H 103 H Respiratory Rate 14 12 Blood Pressure 128/92 H Pulse Oximetry 100 100 Oxygen Delivery Room Air 07/18/24 04:00 07/18/24 05:46 07/18/24 06:00 Temperature 36.4 C 37.0 C Pulse Rate 104 H 100 99 Respiratory Rate 12 16 Blood Pressure 128/82 114/77 Pulse Oximetry 100 100 Oxygen Delivery 07/18/24 08:00 07/18/24 08:00 07/18/24 08:00 Temperature 36.8 C Pulse Rate 101 H 101 H 101 H Respiratory Rate 16 15 Blood Pressure 112/74 Pulse Oximetry 99 99 Oxygen Delivery Room Air Exam Narrative: General: Pt is Drowsy but responsive to stimulation Lungs/Chest: coarse breathing bilaterally. Cardiac: RRR. Normal S1 S2. No murmurs Circulation: Pedal pulses are intact and symmetrical. Abdomen: Normal bowel sounds.. Soft. NT. ND. Extremities: No clubbing, cyanosis or edema. Warm : Zuñiga in place Neurologic: she moves all 4 extremities spontaneous. No facial asymmetry, pupils are bilaterally dilated but reactive to light on stimulation she opens her eyes and mumbles and then goes back to sleep. skin: No Rash Results Labs 07/18/24 03:49 07/18/24 03:49 Labs: Short CBC 07/17/24 07/18/24 Range/Units 15:33 03:49 WBC 8.6 18.3 H (4.5-10.0) K/mm3 Hgb 12.4 11.5 L (12.0-15.0) g/dL Hct 40.1 39.1 (37.0-47.0) % Plt Count 389 H 345 (150-375) k/mm3 BMP 07/17/24 07/18/24 15:33 03:49 Sodium 139 136 L Potassium 3.5 4.2 Chloride 105 111 H Carbon Dioxide 19 L 17 L BUN 19 H 13 D Creatinine 0.93 0.77 Glucose 156 H 99 Calcium 9.1 8.4 Liver Function 07/17/24 07/18/24 Range/Units 15:33 03:49 Total Bilirubin 0.6 0.9 (0.2-1.3) mg/dL AST 37 H 28 (14-36) U/L ALT 23 12 (6-35) U/L Alkaline Phosphatase 44 36 L (38-126) U/L Albumin 4.6 3.6 (3.5-5.1) g/dL Urine 07/17/24 Range/Units 15:33 Urine Color Yellow (Yellow) Urine Appearance Clear (Clear) Urine pH 6.0 (5.0-9.0) Ur Specific [place] 1.029 (1.001-1.035) Urine Protein 1+ H (Negative) mg/dL Urine Glucose (UA) Negative (Negative) mg/dL
--- NOTE | 2024-07-18 13:08 | P.PNIM_ITS ---
Progress Note: A&P Assessment and Plan (1) Drug overdose: Code(s): T50.901A - Poisoning by unspecified drugs, medicaments and biological substances, accidental (unintentional), initial encounter Status: Acute Assessment and Plan: Patient has a history of fentanyl abuse Tox screen positive for amphetamines Monitor patient for respiratory depression Narcan as needed Telemetry monitoring (2) Acute respiratory failure with hypoxia: Code(s): J96.01 - Acute respiratory failure with hypoxia Status: Acute Assessment and Plan: Secondary to aspiration pneumonia See plan above (3) Pneumonia: Code(s): J18.9 - Pneumonia, unspecified organism Status: Acute Assessment and Plan: Likely aspiration pneumonia IV Zosyn (4) Hypothermia: Code(s): T68.XXXA - Hypothermia, initial encounter Status: Acute Assessment and Plan: Warming blanket Monitor in ICU Plan patient still sleepy and unable to provide any history or ROS, patient urine toxicology is positive for Amphetamine, patient is seen by molder machine and will monitor and further recommendation to follow. patient was found unresponsive and cxr is concerning for pneumonia and white counts are elevated, patient may have aspirated and being treated with Zosyn, will monitor. Subjective Date/time seen: 07/18/24 13:08 Interval history: Found unresponsive Narrative: 29-year-old female with history of fentanyl abuse found unresponsive by her boyfriend. On arrival to the emergency room her temperature was 94.9?. HPI is limited as patient is drowsy Her lab work shows lactic acidosis of 5.5 with repeat being 2.5, ABG shows hypoxia UA is noninfective with RBCs, tox screen is positive for amphetamine. Head CT is negative for acute process, CT face and spine are negative for acute process however she has severe periodontal disease. Patient was started on Zosyn for likely aspiration pneumonia and given 2 L IV bolus for sepsis. Patient will be admitted to the ICU for further monitoring. patient still sleepy and unable to provide any history or ROS, patient urine toxicology is positive for Amphetamine, patient is seen by molder machine and will monitor and further recommendation to follow. patient was found unresponsive and cxr is concerning for pneumonia and white counts are elevated, patient may have aspirated and being treated with Zosyn, will monitor. Review of Systems Review of Systems: ROS unobtainable: Yes unobtainable due to medical condition and unobtainable due to mental status Exam Narrative: unable to exam patient is very sleepy Patient is comfortable, NAD Objective Data Vital Signs Vital Signs: Vital Signs - 24 hr 07/17/24 15:11 07/17/24 15:25 07/17/24 15:34 Temperature 34.9 C L Pulse Rate 100 100 Respiratory Rate 13 17 Blood Pressure 120/78 Pulse Oximetry 98 Oxygen Delivery Room Air 07/17/24 15:34 07/17/24 15:40 07/17/24 15:53 Temperature 34.6 C L 34.8 C L 34.9 C L Pulse Rate 104 H Respiratory Rate 15 Blood Pressure 113/84 Pulse Oximetry 100 Oxygen Delivery 07/17/24 16:08 07/17/24 16:38 07/17/24 16:38 Temperature 35.1 C L 35.1 C L 35.1 C L Pulse Rate 102 H Respiratory Rate 14 Blood Pressure 121/87 Pulse Oximetry 95 Oxygen Delivery 07/17/24 16:46 07/17/24 17:08 07/17/24 17:38 Temperature 35.1 C L 35.7 C L 35.9 C L Pulse Rate 103 H Respiratory Rate 13 Blood Pressure 119/81 Pulse Oximetry 95 Oxygen Delivery 07/17/24 17:55 07/17/24 18:00 07/17/24 18:30 Temperature 35.8 C L 36.0 C L 36.2 C L Pulse Rate 105 H Respiratory Rate 16 Blood Pressure 116/72 Pulse Oximetry 98 Oxygen Delivery 07/17/24 18:48 07/17/24 19:00 07/17/24 20:00 Temperature 36.5 C 36.5 C Pulse Rate 107 H Respiratory Rate Blood Pressure 126/80 Pulse Oximetry Oxygen Delivery 07/17/24 20:00 07/17/24 20:00 07/17/24 20:00 Temperature 36.5 C Pulse Rate 107 H 103 H Respiratory Rate 14 Blood Pressure 133/90 Pulse Oximetry 99 Oxygen Delivery Room Air 07/17/24 21:56 07/17/24 21:56 07/17/24 23:46 Temperature 36.7 C Pulse Rate 102 H 103 H 103 H Respiratory Rate 14 14 Blood Pressure 135/95 H Pulse Oximetry 99 100 Oxygen Delivery Room Air 07/17/24 23:46 07/17/24 23:46 07/18/24 02:00 Temperature 36.7 C Pulse Rate 103 H 102 H 103 H Respiratory Rate 14 Blood Pressure 133/89 Pulse Oximetry 100 Oxygen Delivery 07/18/24 02:00 07/18/24 04:00 07/18/24 04:00 Temperature 36.8 C Pulse Rate 103 H 103 H 103 H Respiratory Rate 14 12 Blood Pressure 128/92 H Pulse Oximetry 100 100 Oxygen Delivery Room Air 07/18/24 04:00 07/18/24 05:46 07/18/24 06:00 Temperature 36.4 C 37.0 C Pulse Rate 104 H 100 99 Respiratory Rate 12 16 Blood Pressure 128/82 114/77 Pulse Oximetry 100 100 Oxygen Delivery 07/18/24 08:00 07/18/24 08:00 07/18/24 08:00 Temperature 36.8 C Pulse Rate 101 H 101 H 101 H Respiratory Rate 16 15 Blood Pressure 112/74 Pulse Oximetry 99 99 Oxygen Delivery Room Air 07/18/24 10:00 07/18/24 10:00 07/18/24 12:00 Temperature 37.2 C Pulse Rate 104 H 104 H 110 H Respiratory Rate 15 15 Blood Pressure 124/85 Pulse Oximetry 100 99 Oxygen Delivery Room Air 07/18/24 12:00 07/18/24 12:00 Temperature 37.6 C Pulse Rate 110 H 110 H Respiratory Rate 15 Blood Pressure 111/85 Pulse Oximetry 100 Oxygen Delivery Intake/Output Intake/Output: Intake & Output 07/15/24 07/16/24 07/17/24 07/18/24 23:59 23:59 23:59 23:59 Intake Total 2150 100 Output Total 2950 Balance 2150 -2850 Meds/Results Medications: Active Medications Generic Name Dose Route Start Last Admin Trade Name Freq PRN Reason Stop Dose Admin Acetaminophen 650 mg 07/17/24 17:54 Acetaminophen 325 Mg Tablet PO Q4H PRN Mild Pain (1-3) or Fever Enoxaparin Sodium 40 mg 07/18/24 09:00 07/18/24 08:43 Enoxaparin 40 Mg/0.4 Ml Syringe SUB-Q 40 mg DAILY TUNDE Administration Piperacillin/Tazobactam/Dextrose 3.375 gm in 50 mls @ 100 mls/hr 07/18/24 00:00 07/18/24 12:23 Zosyn 3.375 Gm/Ns 50 Ml IVPB 100 mls/hr Q6H TUNDE Administration Potassium Chloride/Dextrose/Sod Cl 1,000 mls @ 100 mls/hr 07/18/24 07:55 07/18/24 08:42 Kcl 20 Meq/D5/0.45% Sod Chl IV CONT 100 mls/hr .Q10H TUNDE Administration Naloxone HCl 0.1 mg 07/17/24 19:02 Naloxone Hcl 0.4 Mg/Ml Vial IV PUSH Q2M PRN Opiate Reversal Ondansetron HCl 4 mg 07/17/24 17:54 Ondansetron Inj 4 Mg/2 Ml Vial IV PUSH Q4H PRN Nausea Pantoprazole Sodium 40 mg 07/18/24 09:00 07/18/24 08:43 Pantoprazole Sodium Iv 40 Mg Vial IV PUSH 40 mg QAM TUNDE Administration Radiology Results: ITS Impressions Chest X-Ray 07/17/24 15:31 IMPRESSION: No acute cardiopulmonary process. Head CT 07/17/24 16:37 IMPRESSION: No acute intracranial process. Head/Cervical Spine/Facial Bones CT 07/17/24 17:08 IMPRESSION: No acute fracture or traumatic malalignment in the cervical spine. No acute facial bone fracture. Centrilobular ground glass opacities in the right upper lobe, may represent a focus of infection/inflammation. Dental caries and periodontal disease. [place] tonsillar enlargement. Mucoperiosteal sinus disease with right OMU obstruction. Labs Labs: Laboratory Results - last 24 hr 07/17/24 07/17/24 07/17/24 15:21 15:33 16:58 WBC 8.6 RBC 4.80 Hgb 12.4 Hct 40.1 MCV 83.5 MCH 25.8 L MCHC 30.9 L RDW 15.4 H Plt Count 389 H MPV 9.4 Immature Gran % (Auto) 0.4 Neut % (Auto) 66.9 Lymph % (Auto) 27.0 [place] % (Auto) 4.8 Eos % (Auto) 0.4 Baso % (Auto) 0.5 Lymph # (Auto) 2.31 [place] # (Auto) 0.4 Eos # (Auto) 0.0 Baso # (Auto) 0.0 Abs Immat Gran (auto) 0.03 Absolute Neuts (auto) 5.8 Absolute Nucleated RBC 0.000 Band Neutrophils % Nucleated RBC % 0.0 Platelet Estimate Anisocytosis Microcytosis Schistocytes PT 14.1 INR 1.1 APTT 24.3 Puncture Site Right radial ABG pH 7.391 ABG pCO2 30.7 L ABG pO2 76.9 L ABG PO2/FiO2 Ratio 3.66 ABG HCO3 18.2 L ABG O2 Saturation 95.5 ABG O2 Content 15.6 L ABG Base Excess -5.7 A-a Gradient 36.1 Oxyhemoglobin 94.4 Carboxyhemoglobin 0.7 Methemoglobin 0.1 Reduced Hemoglobin 4.8 Total Hemoglobin 11.7 L O2 Delivery Device Room air O2 Liters/Min Not Reportable FiO2 21 Sodium 139 Potassium 3.5 Chloride 105 Carbon Dioxide 19 L Anion Gap 15 H BUN 19 H Creatinine 0.93 Estim Creat Clear Calc Not Reportable Estimated GFR > 60 Glucose 156 H POC Capillary Glucose 131 H Lactic Acid 5.5 H* Calcium 9.1 Total Bilirubin 0.6 AST 37 H ALT 23 Alkaline Phosphatase 44 Ammonia Total Protein 8.0 Albumin 4.6 TSH 1.720 Urine Color Yellow Urine Appearance Clear Urine pH 6.0 Ur Specific [place] 1.029 Urine Protein 1+ H Urine Glucose (UA) Negative Urine Ketones Negative Ur Blood (Man) 2+ H Urine Nitrate Negative Urine Bilirubin Negative Urine Urobilinogen 0.2 Leukocyte Esterase Rfl Negative Urine RBC 21-50 H Urine WBC 0-5 Ur Squamous Epith Cells Occasional Urine Bacteria Rare Urine Casts 0-2 POC Urine HCG, Qual Negative Nasal MRSA (PCR) Salicylates < 1.0 L Urine Opiates Screen Negative Urine Methadone Screen Negative Acetaminophen < 10 L Ur Barbiturates Screen Negative Ur Phencyclidine Scrn Negative Ur Amphetamine Screen Positive A U Benzodiazepines Scrn Negative Urine Cocaine Screen Negative U Cannabinoids Screen Negative Ethyl Alcohol < 10 07/17/24 07/18/24 18:03 03:49 WBC 18.3 H RBC 4.48 Hgb 11.5 L Hct 39.1 MCV 87.3 MCH 25.7 L MCHC 29.4 L RDW 15.7 H Plt Count 345 MPV 9.2 Immature Gran % (Auto) 0.7 H Neut % (Auto) 83.4 H Lymph % (Auto) 8.7 L [place] % (Auto) 6.7 Eos % (Auto) 0.3 Baso % (Auto) 0.2 Lymph # (Auto) 1.59 [place] # (Auto) 1.2 H Eos # (Auto) 0.1 Baso # (Auto) 0.0 Abs Immat Gran (auto) 0.13 H Absolute Neuts (auto) 15.3 H Absolute Nucleated RBC 0.000 Band Neutrophils % Not Reportable Nucleated RBC % 0.0 Platelet Estimate Adequate Anisocytosis 1+ Microcytosis 1+ Schistocytes None seen PT INR APTT Puncture Site ABG pH ABG pCO2 ABG pO2 ABG PO2/FiO2 Ratio ABG HCO3 ABG O2 Saturation ABG O2 Content ABG Base Excess A-a Gradient Oxyhemoglobin Carboxyhemoglobin Methemoglobin Reduced Hemoglobin Total Hemoglobin O2 Delivery Device O2 Liters/Min FiO2 Sodium 136 L Potassium 4.2 Chloride 111 H Carbon Dioxide 17 L Anion Gap 8 BUN 13 D Creatinine 0.77 Estim Creat Clear Calc 87 Estimated GFR > 60 Glucose 99 POC Capillary Glucose Lactic Acid 2.5 H 1.7 Calcium 8.4 Total Bilirubin 0.9 AST 28 ALT 12 Alkaline Phosphatase 36 L Ammonia < 9 L Total Protein 6.8 Albumin 3.6 TSH Urine Color Urine Appearance Urine pH Ur Specific [place] Urine Protein Urine Glucose (UA) Urine Ketones Ur Blood (Man) Urine Nitrate Urine Bilirubin Urine Urobilinogen Leukocyte Esterase Rfl Urine RBC Urine WBC Ur Squamous Epith Cells Urine Bacteria Urine Casts POC Urine HCG, Qual Nasal MRSA (PCR) Not detected Salicylates Urine Opiates Screen Urine Methadone Screen Acetaminophen Ur Barbiturates Screen Ur Phencyclidine Scrn Ur Amphetamine Screen U Benzodiazepines Scrn Urine Cocaine Screen U Cannabinoids Screen Ethyl Alcohol
--- NOTE | 2024-07-18 16:59 | PC.NURSE ---
Mom (Isi) [phone]) made aware of police presence. Bibiana made aware patient with be made confidential. Paris Snowden and Rosangela will be the only people allowed to call for information on patient. Isi agrees.
[2024-07-19] VITALS (13 sets, daily range): BP systolic 92–104; BP diastolic 61–78; PULSE 89–102; RESP 12–20; TEMP 36.9–37.7; O2SAT 99–100
[2024-07-19 03:54] LABS: Hematocrit 34.1 % (37.0-47.0); Hemoglobin 10.5 g/dL (12.0-15.0); Mean Corpuscular HGB Conc 30.8 g/dl (32-36); Mean Corpuscular Hemoglobin 25.7 pg (26-34); Mean Corpuscular Volume 83.6 fl (80-100); Mean Platelet Volume 9.5 fl (7.4-10.4); Platelet Count Result 287 k/mm3 (150-375); Red Blood Count 4.08 M/mm3 (4.2-5.4); Red Cell Distribution Width 15.9 % (11.5-14.5)
[2024-07-19] MEDS: PIPERACILLN/TAZ 3.375GM/NS50ML 3.375 GM/50 ML BAG IVPB ×4 (05:08→23:47)
[2024-07-19] MEDS: KCL 20 MEQ/D5/0.45% SOD CHL 1,000 ML 100 ML IV CONT ×3 (05:08→23:46)
[2024-07-19 05:24] LABS: Alanine Aminotransferase 11 U/L (6-35); Albumin Level 3.4 g/dL (3.5-5.1); Alkaline Phosphatase 33 U/L (38-126); Anion Gap 6 mmol/L (4-12); Aspartate Amino Transferase 25 U/L (14-36); Bilirubin,Total 0.4 mg/dL (0.2-1.3); Blood Urea Nitrogen 7 mg/dL (7-17); Calcium 8.8 mg/dL (8.4-10.2); Carbon Dioxide 20 mmol/L (22-30); Chloride 110 mmol/L (98-107); Estimated CRCL calculation 78 ml/min; Estimated Glomerular Filt Rate > 60; Glucose 100 mg/dL (65-110); Magnesium 2.2 mg/dL (1.6-2.3); Sodium 136 mmol/L (137-145); Total Protein 6.5 g/dL (6.3-8.2)
--- NOTE | 2024-07-19 07:56 | WPDINTPN ---
Progress Note: A&P Assessment and Plan (1) Toxic encephalopathy: Code(s): G92.9 - Unspecified toxic encephalopathy Status: Acute Assessment and Plan: toxic encephalopathy with no focal neurological deficit likely secondary to drug overdose normal TSH and ammonia unremarkable head CT protecting her airway with adequate ventilation and respiratory rate improving. continue supportive care (2) Hypothermia: Code(s): T68.XXXA - Hypothermia, initial encounter Status: Acute Assessment and Plan: likely secondary to environmental exposure and drug overdose Now be warmed and off warming blanket (3) Drug overdose: Code(s): T50.901A - Poisoning by unspecified drugs, medicaments and biological substances, accidental (unintentional), initial encounter Status: Acute Assessment and Plan: history of drug abuse and urine drug screen positive for amphetamine she admitted to using meth supportive care IV fluids (4) Pneumonia: Code(s): J18.9 - Pneumonia, unspecified organism Status: Acute Assessment and Plan: mildly elevated WBC count and imaging suggestive of infiltrates and right upper lobe which could be pneumonia which could be aspiration she has poor dentition and dental caries along with pay order until disease blood culture sent and negative till now continue Zosyn (5) Lactic acidosis: Code(s): E87.20 - Acidosis, unspecified Status: Acute Assessment and Plan: secondary to drug overdose and sepsis cleared with IV fluids lactic acid level now normal (6) Sepsis: Code(s): A41.9 - Sepsis, unspecified organism Status: Acute Assessment and Plan: secondary to aspiration pneumonia UA normal management as above Plan DVT prophylaxis - Lovenox Nutrition start diet today Code Status - Full Code incentive spirometry Subjective Date/time seen: 07/19/24 Patient still drowsy but much more awake as compared to yesterday. Easily wakes up on calling her name states that she is thirsty and would like some water. She denies any complaints. She admits that she used meth amphetamine prior to coming to the hospital. Patient denies fever, chest pain, shortness of breath, cough, nausea vomiting, abdominal pain,, diarrhea, headache or constipation. She is on room air. Sinus rhythm on the monitor. Blood pressure adequate. Urine output adequate. On IV fluids. Review of Systems Review of Systems: All systems reviewed & are unremarkable except as noted in HPI and below ( HPI) Exam Narrative: General: Pt is Drowsy but responsive to stimulation And on calling her name Lungs/Chest: coarse breathing bilaterally. Cardiac: RRR. Normal S1 S2. No murmurs Circulation: Pedal pulses are intact and symmetrical. Abdomen: Normal bowel sounds.. Soft. NT. ND. Extremities: No clubbing, cyanosis or edema. Warm : Zuñiga in place Neurologic: drowsy but easily wakes up. AO x3, follows commands with all 4 extremities. No facial asymmetry, pupils are bilaterally dilated but reactive to light skin: No Rash Objective Data Vital Signs Vital Signs: Vital Signs - 24 hr 07/18/24 08:00 07/18/24 08:00 07/18/24 08:00 Temperature 36.8 C Pulse Rate 101 H 101 H 101 H Respiratory Rate 16 15 Blood Pressure 112/74 Pulse Oximetry 99 99 Oxygen Delivery Room Air 07/18/24 10:00 07/18/24 10:00 07/18/24 12:00 Temperature 37.2 C Pulse Rate 104 H 104 H 110 H Respiratory Rate 15 15 Blood Pressure 124/85 Pulse Oximetry 100 99 Oxygen Delivery Room Air 07/18/24 12:00 07/18/24 12:00 07/18/24 14:00 Temperature 37.6 C Pulse Rate 110 H 110 H 110 H Respiratory Rate 15 Blood Pressure 111/85 Pulse Oximetry 100 Oxygen Delivery 07/18/24 14:00 07/18/24 16:00 07/18/24 16:00 Temperature 37.8 C H Pulse Rate 110 H 110 H 110 H Respiratory Rate 15 15 Blood Pressure 115/81 Pulse Oximetry 100 100 Oxygen Delivery Room Air 07/18/24 16:00 07/18/24 18:00 07/18/24 18:00 Temperature 38.0 C H 37.9 C H Pulse Rate 110 H 102 H 102 H Respiratory Rate 15 15 Blood Pressure 112/79 103/67 Pulse Oximetry 100 98 Oxygen Delivery 07/18/24 20:00 07/18/24 20:00 07/18/24 20:00 Temperature 37.8 C H Pulse Rate 98 98 Respiratory Rate 15 Blood Pressure 99/71 L Pulse Oximetry 98 Oxygen Delivery Room Air 07/18/24 22:00 07/18/24 22:00 07/18/24 23:46 Temperature 37.8 C H Pulse Rate 98 98 Respiratory Rate 14 Blood Pressure 100/65 Pulse Oximetry 99 Oxygen Delivery Room Air 07/19/24 00:00 07/19/24 00:00 07/19/24 02:00 Temperature 37.7 C H 37.6 C Pulse Rate 96 96 93 Respiratory Rate 15 15 Blood Pressure 96/70 L 98/61 L Pulse Oximetry 99 99 Oxygen Delivery 07/19/24 02:00 07/19/24 04:00 07/19/24 04:00 Temperature 37.3 C Pulse Rate 93 89 89 Respiratory Rate 13 Blood Pressure 100/62 Pulse Oximetry 99 Oxygen Delivery 07/19/24 04:00 07/19/24 06:00 07/19/24 06:00 Temperature 37.0 C Pulse Rate 90 90 Respiratory Rate 14 Blood Pressure 100/63 Pulse Oximetry 99 Oxygen Delivery Room Air Intake/Output Intake/Output: Intake & Output 07/16/24 07/17/24 07/18/24 07/19/24 23:59 23:59 23:59 23:59 Intake Total 2150 1200 1100 Output Total 5400 1000 Balance 2150 -4200 100 Meds/Results Medications: Active Medications Generic Name Dose Route Start Last Admin Trade Name Freq PRN Reason Stop Dose Admin Acetaminophen 650 mg 07/17/24 17:54 Acetaminophen 325 Mg Tablet PO Q4H PRN Mild Pain (1-3) or Fever Enoxaparin Sodium 40 mg 07/18/24 09:00 07/18/24 08:43 Enoxaparin 40 Mg/0.4 Ml Syringe SUB-Q 40 mg DAILY TUNDE Administration Piperacillin/Tazobactam/Dextrose 3.375 gm in 50 mls @ 100 mls/hr 07/18/24 00:00 07/19/24 05:38 Zosyn 3.375 Gm/Ns 50 Ml IVPB Infused Q6H TUNDE Infusion Potassium Chloride/Dextrose/Sod Cl 1,000 mls @ 100 mls/hr 07/18/24 07:55 07/19/24 05:08 Kcl 20 Meq/D5/0.45% Sod Chl IV CONT 100 mls/hr .Q10H TUNDE Administration Naloxone HCl 0.1 mg 07/17/24 19:02 Naloxone Hcl 0.4 Mg/Ml Vial IV PUSH Q2M PRN Opiate Reversal Ondansetron HCl 4 mg 07/17/24 17:54 Ondansetron Inj 4 Mg/2 Ml Vial IV PUSH Q4H PRN Nausea Pantoprazole Sodium 40 mg 07/18/24 09:00 07/18/24 08:43 Pantoprazole Sodium Iv 40 Mg Vial IV PUSH 40 mg QAM TUNDE Administration Radiology Results: ITS Impressions Chest X-Ray 07/17/24 15:31 IMPRESSION: No acute cardiopulmonary process. Head CT 07/17/24 16:37 IMPRESSION: No acute intracranial process. Head/Cervical Spine/Facial Bones CT 07/17/24 17:08 IMPRESSION: No acute fracture or traumatic malalignment in the cervical spine. No acute facial bone fracture. Centrilobular ground glass opacities in the right upper lobe, may represent a focus of infection/inflammation. Dental caries and periodontal disease. [address] tonsillar enlargement. Mucoperiosteal sinus disease with right OMU obstruction. Labs Labs: Laboratory Results - last 24 hr 07/19/24 03:49 WBC 13.0 H RBC 4.08 L Hgb 10.5 L Hct 34.1 L MCV 83.6 MCH 25.7 L MCHC 30.8 L RDW 15.9 H Plt Count 287 MPV 9.5 Sodium 136 L Potassium 4.0 Chloride 110 H Carbon Dioxide 20 L Anion Gap 6 BUN 7 D Creatinine 0.86 Estim Creat Clear Calc 78 Estimated GFR > 60 Glucose 100 Calcium 8.8 Magnesium 2.2 Total Bilirubin 0.4 AST 25 ALT 11 Alkaline Phosphatase 33 L Total Protein 6.5 Albumin 3.4 L Quality VTE Prophylaxis VTE prophylaxis: mechanical ordered
[2024-07-19] MEDS: PANTOPRAZOLE SODIUM IV 40 MG VIAL IV PUSH (09:08)
[2024-07-19] MEDS: ENOXAPARIN 40 MG/0.4 ML SYRINGE SUB-Q (09:08)
--- NOTE | 2024-07-19 18:00 | P.PNIM_ITS ---
Progress Note: A&P Assessment and Plan (1) Toxic encephalopathy: Code(s): G92.9 - Unspecified toxic encephalopathy Status: Acute Assessment and Plan: toxic encephalopathy with no focal neurological deficit likely secondary to drug overdose normal TSH and ammonia unremarkable head CT protecting her airway with adequate ventilation and respiratory rate improving. continue supportive care (2) Hypothermia: Code(s): T68.XXXA - Hypothermia, initial encounter Status: Acute Assessment and Plan: likely secondary to environmental exposure and drug overdose Now be warmed and off warming blanket (3) Drug overdose: Code(s): T50.901A - Poisoning by unspecified drugs, medicaments and biological substances, accidental (unintentional), initial encounter Status: Acute Assessment and Plan: history of drug abuse and urine drug screen positive for amphetamine she admitted to using meth supportive care IV fluids (4) Pneumonia: Code(s): J18.9 - Pneumonia, unspecified organism Status: Acute Assessment and Plan: mildly elevated WBC count and imaging suggestive of infiltrates and right upper lobe which could be pneumonia which could be aspiration she has poor dentition and dental caries along with pay order until disease blood culture sent and negative till now continue Zosyn (5) Lactic acidosis: Code(s): E87.20 - Acidosis, unspecified Status: Acute Assessment and Plan: secondary to drug overdose and sepsis cleared with IV fluids lactic acid level now normal (6) Sepsis: Code(s): A41.9 - Sepsis, unspecified organism Status: Acute Assessment and Plan: secondary to aspiration pneumonia UA normal management as above Plan patient still sleepy and unable to provide any history or ROS, patient urine toxicology is positive for Amphetamine, patient is seen by production line assembler and will monitor and further recommendation to follow. patient was found unresponsive and cxr is concerning for pneumonia and white counts were elevated and now trending down, patient may have aspirated and being treated with Zosyn, will monitor. patient still not fully awaken. DVT prophylaxis - Lovenox Nutrition start diet today Code Status - Full Code incentive spirometry Subjective Date/time seen: 07/19/24 18:00 Interval history: Found unresponsive Narrative: 29-year-old female with history of fentanyl abuse found unresponsive by her boyfriend. On arrival to the emergency room her temperature was 94.9?. HPI is limited as patient is drowsy Her lab work shows lactic acidosis of 5.5 with repeat being 2.5, ABG shows hypoxia UA is noninfective with RBCs, tox screen is positive for amphetamine. Head CT is negative for acute process, CT face and spine are negative for acute process however she has severe periodontal disease. Patient was started on Zosyn for likely aspiration pneumonia and given 2 L IV bolus for sepsis. Patient will be admitted to the ICU for further monitoring. patient still sleepy and unable to provide any history or ROS, patient urine toxicology is positive for Amphetamine, patient is seen by production line assembler and will monitor and further recommendation to follow. patient was found unresponsive and cxr is concerning for pneumonia and white counts were elevated and now trending down, patient may have aspirated and being treated with Zosyn, will monitor. patient still not fully awaken. Review of Systems Review of Systems: 12 systems were reviewed and are negativ e except for as per HPI. All systems reviewed & are unremarkable except as noted in HPI and below ( HPI) ROS unobtainable: Yes unobtainable due to medical condition and unobtainable due to mental status Exam Narrative: unable to exam patient is very sleepy, patient still not fully awaken, Patient is comfortable, NAD Objective Data Vital Signs Vital Signs: Vital Signs - 24 hr 07/18/24 20:00 07/18/24 20:00 07/18/24 20:00 Temperature 37.8 C H Pulse Rate 98 98 Respiratory Rate 15 Blood Pressure 99/71 L Pulse Oximetry 98 Oxygen Delivery Room Air 07/18/24 22:00 07/18/24 22:00 07/18/24 23:46 Temperature 37.8 C H Pulse Rate 98 98 Respiratory Rate 14 Blood Pressure 100/65 Pulse Oximetry 99 Oxygen Delivery Room Air 07/19/24 00:00 07/19/24 00:00 07/19/24 02:00 Temperature 37.7 C H 37.6 C Pulse Rate 96 96 93 Respiratory Rate 15 15 Blood Pressure 96/70 L 98/61 L Pulse Oximetry 99 99 Oxygen Delivery 07/19/24 02:00 07/19/24 04:00 07/19/24 04:00 Temperature 37.3 C Pulse Rate 93 89 89 Respiratory Rate 13 Blood Pressure 100/62 Pulse Oximetry 99 Oxygen Delivery 07/19/24 04:00 07/19/24 06:00 07/19/24 06:00 Temperature 37.0 C Pulse Rate 90 90 Respiratory Rate 14 Blood Pressure 100/63 Pulse Oximetry 99 Oxygen Delivery Room Air 07/19/24 08:00 07/19/24 08:00 07/19/24 08:00 Temperature 36.9 C Pulse Rate 92 90 90 Respiratory Rate 13 12 Blood Pressure 94/61 L Pulse Oximetry 99 100 Oxygen Delivery Room Air 07/19/24 10:00 07/19/24 12:00 07/19/24 12:00 Temperature 37.1 C Pulse Rate 89 90 89 Respiratory Rate 15 15 Blood Pressure 95/65 L Pulse Oximetry 99 99 Oxygen Delivery Room Air 07/19/24 12:00 07/19/24 14:00 07/19/24 14:00 Temperature 37.4 C Pulse Rate 91 94 94 Respiratory Rate 15 Blood Pressure 92/67 L Pulse Oximetry 99 Oxygen Delivery 07/19/24 16:00 07/19/24 16:00 07/19/24 16:00 Temperature 37.4 C Pulse Rate 102 H 102 H 102 H Respiratory Rate 15 15 Blood Pressure 104/63 Pulse Oximetry 100 100 Oxygen Delivery Room Air Intake/Output Intake/Output: Intake & Output 07/16/24 07/17/24 07/18/24 07/19/24 23:59 23:59 23:59 23:59 Intake Total 2150 1200 2250 Output Total 5400 2300 Balance 2150 -4200 -50 Meds/Results Medications: Active Medications Generic Name Dose Route Start Last Admin Trade Name Freq PRN Reason Stop Dose Admin Acetaminophen 650 mg 07/17/24 17:54 Acetaminophen 325 Mg Tablet PO Q4H PRN Mild Pain (1-3) or Fever Enoxaparin Sodium 40 mg 07/18/24 09:00 07/19/24 09:08 Enoxaparin 40 Mg/0.4 Ml Syringe SUB-Q 40 mg DAILY TUNDE Administration Piperacillin/Tazobactam/Dextrose 3.375 gm in 50 mls @ 100 mls/hr 07/18/24 00:00 07/19/24 17:59 Zosyn 3.375 Gm/Ns 50 Ml IVPB 100 mls/hr Q6H TUNDE Administration Potassium Chloride/Dextrose/Sod Cl 1,000 mls @ 100 mls/hr 07/18/24 07:55 07/19/24 15:47 Kcl 20 Meq/D5/0.45% Sod Chl IV CONT 100 mls/hr .Q10H TUNDE Administration Naloxone HCl 0.1 mg 07/17/24 19:02 Naloxone Hcl 0.4 Mg/Ml Vial IV PUSH Q2M PRN Opiate Reversal Ondansetron HCl 4 mg 07/17/24 17:54 Ondansetron Inj 4 Mg/2 Ml Vial IV PUSH Q4H PRN Nausea Pantoprazole Sodium 40 mg 07/18/24 09:00 07/19/24 09:08 Pantoprazole Sodium Iv 40 Mg Vial IV PUSH 40 mg QAM TUNDE Administration Radiology Results: ITS Impressions Chest X-Ray 07/17/24 15:31 IMPRESSION: No acute cardiopulmonary process. Head CT 07/17/24 16:37 IMPRESSION: No acute intracranial process. Head/Cervical Spine/Facial Bones CT 07/17/24 17:08 IMPRESSION: No acute fracture or traumatic malalignment in the cervical spine. No acute facial bone fracture. Centrilobular ground glass opacities in the right upper lobe, may represent a focus of infection/inflammation. Dental caries and periodontal disease. [place] tonsillar enlargement. Mucoperiosteal sinus disease with right OMU obstruction. Labs Labs: Laboratory Results - last 24 hr 07/19/24 03:49 WBC 13.0 H RBC 4.08 L Hgb 10.5 L Hct 34.1 L MCV 83.6 MCH 25.7 L MCHC 30.8 L RDW 15.9 H Plt Count 287 MPV 9.5 Sodium 136 L Potassium 4.0 Chloride 110 H Carbon Dioxide 20 L Anion Gap 6 BUN 7 D Creatinine 0.86 Estim Creat Clear Calc 78 Estimated GFR > 60 Glucose 100 Calcium 8.8 Magnesium 2.2 Total Bilirubin 0.4 AST 25 ALT 11 Alkaline Phosphatase 33 L Total Protein 6.5 Albumin 3.4 L Quality VTE Prophylaxis VTE prophylaxis: mechanical ordered
[2024-07-20] VITALS (8 sets, daily range): BP systolic 92–102; BP diastolic 64–70; PULSE 82–97; RESP 12–14; TEMP 36.6–37.3; O2SAT 96–100
[2024-07-20 03:57] LABS: Hematocrit 33.1 % (37.0-47.0); Hemoglobin 10.3 g/dL (12.0-15.0); Mean Corpuscular HGB Conc 31.1 g/dl (32-36); Mean Corpuscular Hemoglobin 25.8 pg (26-34); Mean Platelet Volume 9.4 fl (7.4-10.4); Platelet Count Result 315 k/mm3 (150-375); Red Blood Count 3.99 M/mm3 (4.2-5.4); Red Cell Distribution Width 15.7 % (11.5-14.5); White Blood Count 8.2 K/mm3 (4.5-10.0)
[2024-07-20 04:15] LABS: Alanine Aminotransferase 11 U/L (6-35); Albumin Level 3.3 g/dL (3.5-5.1); Alkaline Phosphatase 29 U/L (38-126); Anion Gap 5 mmol/L (4-12); Aspartate Amino Transferase 19 U/L (14-36); Bilirubin,Total 0.3 mg/dL (0.2-1.3); Blood Urea Nitrogen 9 mg/dL (7-17); Calcium 8.5 mg/dL (8.4-10.2); Carbon Dioxide 23 mmol/L (22-30); Chloride 108 mmol/L (98-107); Estimated CRCL calculation 79 ml/min; Estimated Glomerular Filt Rate > 60; Glucose 92 mg/dL (65-110); Magnesium 2.1 mg/dL (1.6-2.3); Potassium 3.8 mmol/L (3.4-5.0); Sodium 136 mmol/L (137-145); Total Protein 6.4 g/dL (6.3-8.2)
[2024-07-20] MEDS: PIPERACILLN/TAZ 3.375GM/NS50ML 3.375 GM/50 ML BAG IVPB (05:42)
[2024-07-20] MEDS: PANTOPRAZOLE SODIUM IV 40 MG VIAL IV PUSH (08:29)
[2024-07-20] MEDS: ENOXAPARIN 40 MG/0.4 ML SYRINGE SUB-Q (08:30)
--- NOTE | 2024-07-20 13:28 | P.DS_ITS ---
DS: Admitting Diagnosis Discharge Date 07/20/24 Admitting Diagnosis Found unresponsive DS: Discharge Diagnosis Discharge Diagnosis (1) Toxic encephalopathy: Code(s): G92.9 - Unspecified toxic encephalopathy Status: Acute Assessment and Plan: toxic encephalopathy with no focal neurological deficit likely secondary to drug overdose normal TSH and ammonia unremarkable head CT protecting her airway with adequate ventilation and respiratory rate improving. continue supportive care (2) Hypothermia: Code(s): T68.XXXA - Hypothermia, initial encounter Status: Acute Assessment and Plan: likely secondary to environmental exposure and drug overdose Now be warmed and off warming blanket (3) Drug overdose: Code(s): T50.901A - Poisoning by unspecified drugs, medicaments and biological substances, accidental (unintentional), initial encounter Status: Acute Assessment and Plan: history of drug abuse and urine drug screen positive for amphetamine she admitted to using meth supportive care IV fluids (4) Pneumonia: Code(s): J18.9 - Pneumonia, unspecified organism Status: Acute Assessment and Plan: mildly elevated WBC count and imaging suggestive of infiltrates and right upper lobe which could be pneumonia which could be aspiration she has poor dentition and dental caries along with pay order until disease blood culture sent and negative till now continue Zosyn (5) Lactic acidosis: Code(s): E87.20 - Acidosis, unspecified Status: Acute Assessment and Plan: secondary to drug overdose and sepsis cleared with IV fluids lactic acid level now normal (6) Sepsis: Code(s): A41.9 - Sepsis, unspecified organism Status: Acute Assessment and Plan: secondary to aspiration pneumonia UA normal management as above Plan patient still sleepy and unable to provide any history or ROS, patient urine toxicology is positive for Amphetamine, patient is seen by pond worker and will monitor and further recommendation to follow. patient was found unresponsive and cxr is concerning for pneumonia and white counts were elevated and now trending down, patient may have aspirated and being treated with Zosyn, will monitor. patient still not fully awaken. DVT prophylaxis - Lovenox Nutrition start diet today Code Status - Full Code incentive spirometry DS: Summary Hospital Course Hospital Course: patient still sleepy and unable to provide any history or ROS, patient urine toxicology is positive for Amphetamine, patient is seen by pond worker and will monitor and further recommendation to follow. patient was found unresponsive and cxr is concerning for pneumonia and white counts were elevated and now trending down, patient may have aspirated and being treated with Zosyn, will monitor. patient still not fully awaken. patient is being discharged with her mother who has agreed to take the patient to acute psychiatric clinic across [facility], patient to follow up with primary care provider as soon as possible, patient is instructed if any symptoms redevelop to go to nearest ER. Time Spent with Patient Time attestation: Total time spent providing and/or coordinating discharge services: Exam Narrative: unable to exam patient is very sleepy, patient still not fully awaken, Patient is comfortable, NAD DS: Data Data Completed and Pending Labs on day of discharge: Labs from last 24 hours 07/20/24 03:52 WBC 8.2 RBC 3.99 L Hgb 10.3 L Hct 33.1 L MCV 83.0 MCH 25.8 L MCHC 31.1 L RDW 15.7 H Plt Count 315 MPV 9.4 Sodium 136 L Potassium 3.8 Chloride 108 H Carbon Dioxide 23 Anion Gap 5 BUN 9 Creatinine 0.85 Estim Creat Clear Calc 79 Estimated GFR > 60 Glucose 92 Calcium 8.5 Magnesium 2.1 Total Bilirubin 0.3 AST 19 ALT 11 Alkaline Phosphatase 29 L Total Protein 6.4 Albumin 3.3 L Preliminary micro results at discharge 07/17/24 16:55 Blood Culture - Preliminary Blood 07/17/24 16:55 Blood Culture - Preliminary Blood Discharge Plan Discharge Attending physician on discharge: Jesus Jackson Consulting providers: Traci Putnam; Pipe Grewal; Shahbaz Melara; Carin Ross; Alden Price Discharging Clinician: Greg Duarte Patient Disposition: Home Activity: as tolerated Diet: heart healthy Discharge Instructions: patient is being discharged with her mother who has agreed to take the patient acute psychiatric clinic across [facility], patient to follow up with primary care provider as soon as possible, patient is instructed if any symptoms redevelop to go to nearest ER. Patient Instructions: Antibiotic Form, Acute Hypothermia (DC), Pneumonia (DC) Patient Language: Estonian Stand Alone Forms: General Discharge Information Follow-up/Referrals: Traci Putnam DO [Physician] - PHYSICIAN,[employer] DISPATCHER [Primary Care Provider] - Discharge Medications: New naloxone [Rextovy] 4 mg/actuation spray,non-aerosol 4 mg intranasal Q2M PRN (Reason: opioid overdose) Qty: 2 0RF Rx Instructions: spray 1 dose into ONE nostril; alternate nostrils w each dose until help arrives Continued sucralfate [Carafate] 1 gram tablet 1 gm PO Q6H Qty: 40 0RF pantoprazole [Protonix] 40 mg tablet,delayed release (DR/EC) 40 mg PO QAM 28 Days Qty: 28 0RF Date of admission: 07/19/24 10:08 Primary Care Provider: PHYSICIAN,[employer] DISPATCHER Admitting Provider: Jesus Jackson Attending physician on admission: Greg Duarte Condition: Stable
== END 2024-07-20 14:48 | disposition home or self-care (01) | DRG 812 ==
LOC: ANHED 17:59 → ANHICU 18:34
PROVIDERS: Nurse Practitioner Gerontology; Admitting Provider General Practice; Emergency Provider Emergency Medicine; Visit Provider Family Medicine
DX: T43.621A Poisoning by amphetamines, accidental (unintentional), initial encounter (principal); A41.9 Sepsis, unspecified organism; J69.0 Pneumonitis due to inhalation of food and vomit; J18.9 Pneumonia, unspecified organism; E87.21 Acute metabolic acidosis; G92.8 Other toxic encephalopathy; K05.6 Periodontal disease, unspecified; J96.01 Acute respiratory failure with hypoxia; R68.0 Hypothermia, not associated with low environmental temperature; T68.XXXA Hypothermia, initial encounter; Z96.643 Presence of artificial hip joint, bilateral; Z90.49 Acquired absence of other specified parts of digestive tract
CPT/HCPCS: 36415; 36600; 70450; 70486; 71045; 72125; 80053; 80143; 80179; 80307; 81001; 81025; 82077; 82140; 82375; 82805; 82948; 83050; 83605; 83735; 84443; 85018; 85025; 85027; 85610; 85730; 87040; 87641; 93005; 96361; 96365; 96366; 96367; 96372; 96375; 99285; G0378; J1650; J2470; J2543; J3480; J7030

== ENCOUNTER 2024-11-05 04:19 | Observation (INO) | payer BC, SELFPAY ==
[2024-11-05] VITALS (14 sets, daily range): BP systolic 100–117; BP diastolic 58–80; PULSE 76–106; RESP 16–18; TEMP 36.3–37.3; O2SAT 96–100; BMI 23.0
--- NOTE | ~2024-11-05 | CT_ITS ---
EXAMINATION: CT abdomen pelvis wo con DATE: 11/05/2024 06:38 INDICATION: Right flank pain. TECHNIQUE: Computed tomography (CT) of the abdomen and pelvis was performed without intravenous contrast. Automated exposure control and iterative reconstruction technique were employed. The dose-length product was 266.51 mGy-cm. COMPARISON: CT abdomen and pelvis 12/19/2018 FINDINGS: The visualized portions of the lung bases demonstrate minimal atelectasis. No pleural effusion. The heart size is normal. No pericardial effusion. The liver and spleen are normal. There are changes of cholecystectomy. The pancreas and adrenal glands are normal. There is asymmetric edema around right kidney. There is a 3 mm stone in left kidney. There are no dilated loops of bowel. There are changes of appendectomy. There are no pathologically enlarged lymph nodes. There is physiologic fluid in the pelvis. There is mild thoracic and lumbar spondylosis. There is mild chronic anterior wedging of multiple vertebral bodies. There are surgical changes of proximal left femur. IMPRESSION: 1. Asymmetric edema around right kidney. 2. Small nonobstructing left kidney stone. Reviewed, dictated and finalized at location E.
[2024-11-05 04:39] LABS: Hematocrit 37.5 % (37.0-47.0); Hemoglobin 11.7 g/dL (12.0-15.0); Immature Granulocyte Percent A 0.6 % (0-0.5); Lymphocytes Absolute Auto 1.68 K/mm3 (0.9-3.2); Mean Corpuscular HGB Conc 31.2 g/dl (32-36); Mean Corpuscular Hemoglobin 23.1 pg (26-34); Mean Corpuscular Volume 74.1 fl (80-100); Nucleated Red Blood Cells Absolute Auto 0.000 K/mm3 (0.0-0.012); Nucleated Red Blood Cells Perc 0.0 % (0.0-0.2); Platelet Count Result 281 k/mm3 (150-375); Red Blood Count 5.06 M/mm3 (4.2-5.4); White Blood Count 14.1 K/mm3 (4.5-10.0)
[2024-11-05 04:51] LABS: Alanine Aminotransferase 26 U/L (6-35); Albumin Level 4.0 g/dL (3.5-5.1); Alkaline Phosphatase 46 U/L (38-126); Anion Gap 7 mmol/L (4-12); Aspartate Amino Transferase 36 U/L (14-36); Bilirubin,Total 0.5 mg/dL (0.2-1.3); Blood Urea Nitrogen 11 mg/dL (7-17); Calcium 9.3 mg/dL (8.4-10.2); Carbon Dioxide 26 mmol/L (22-30); Chloride 97 mmol/L (98-107); Estimated CRCL calculation 71 ml/min; Estimated Glomerular Filt Rate > 60; Glucose 124 mg/dL (65-110); Lipase 76 U/L (23-300); Potassium 4.2 mmol/L (3.4-5.0); Sodium 130 mmol/L (137-145); Total Protein 7.8 g/dL (6.3-8.2)
--- OUTSIDE RECORDS SUMMARY | 2024-11-05 05:18 | XMS_ITS | Clinical Summary ---
Author Organization [facility] Address [facility] [place] [address] Care Team Providers Care Heavy Duty Custodian Name Role Phone Unavailable Primary Care Provider Unavailabl e Social History Tobacco Use Types Packs/Day Years Used Date Smoking Tobacco: Never Assessed Comments Unknown Sex and Gender Information Value Date Recorded Sex Assigned at Not on file Legal Sex Female 7:40 AM CDT Gender Identity Not on file Sexual Orientation Not on file Plan of Treatment Health Maintenance Due Date Last Done Comments Cervical Cancer Screening Pa p Smear (Age 30 to 64) Every 3 Years 1994 Annual Physical 1997 Hepatitis C 2012 DTaP, Tdap and Td Vaccines ( 1 - Tdap) 2013 Hepatitis B Vaccines (1 of 3 - 19+ 3-dose series) 2013 HPV Vaccines (1 - 3-dose SCD M series) 2021 Cervical Cancer Screening Pa p with HPV Testing (Age 30 to 64) Every 5 Years 2024 Cervical Cancer Screening with HPV 2024 COVID-19 Vaccine ( - 2023-2 5 season) 2024 Meningococcal B Vaccine Aged Out No l onger eligible based on patient's age to complete this topic Meningococcal Vaccine Aged Out No graciela jose eligible based on patient's age to complete this topic Pneumococcal Vaccine: Pediat rics (0 to 5 Years) and At-Risk Patients (6 to 49 Years) Aged Out No longer eligible b ased on patient's age to complete this topic RSV Immunizations Under 20 Months Aged Out No longer eligible based on patient's age to complete this topic
--- NOTE | 2024-11-05 05:20 | ED_ITS ---
HPI - Abdominal Pain General Chief Complaint: Abdominal Pain <Roverto Washburn MD - Last Filed: 11/08/24 21:33> Stated Complaint: R SIDED ABD/BACK PAIN <Roverto Washburn MD - Last Filed: 11/08/24 21:33> Time Seen by Provider: 11/05/24 04:51 <Roverto Washburn MD - Last Filed: 11/08/24 21:33> History of Present Illness HPI narrative: 29-year-old female with history of polysubstance abuse presenting to the emergency department with right-sided flank pain. States it has been going on for 2 days. Taking ibuprofen at home without any relief. No urinary complaints. No radiating pain. No fever, chills, bowel issues. No nausea or vomiting. States the pain comes and goes in waves. Denies any traumatic injuries. Has had a history of appendectomy and cholecystectomy. No history of kidney stones or urinary infection symptoms. <Roverto Washburn MD - Last Filed: 11/08/24 21:33> Related Data Home Medications: Home Medications ?Medication ?Instructions ?Recorded ?Confirmed ?Last Taken ?Type buprenorphine 8 mg-naloxone 2 mg 1 film sublingual TID PRN fentanyl 11/05/24 11/05/24 11/01/24 History sublingual film addiction <Roverto Washburn MD - Last Filed: 11/08/24 21:33> Allergies/Adverse Reactions: Allergies Allergy/AdvReac Type Severity Reaction Status Date / Time bee venom protein (honey bee) Allergy Anaphylaxis Verified 08/16/24 07:44 morphine Allergy ITCH Verified 08/16/24 07:44 <Roverto Washburn MD - Last Filed: 11/08/24 21:33> Review of Systems 2 Review of Systems: As reviewed above in HPI <Roverto Washburn MD - Last Filed: 11/08/24 21:33> [facility] Past Medical History Medical History: Medical History (Updated 11/07/24 @ 10:20 by Libby Salas APRN) Polysubstance abuse Wrist fracture, bilateral Bilateral ankle fractures Toe fracture UTI (urinary tract infection) Wears glasses <Roverto Washburn MD - Last Filed: 11/08/24 21:33> Surgical History Surgical History: Surgical History Hx of bilateral hip replacements Hx of section x3 History of cholecystectomy <Roverto Washburn MD - Last Filed: 11/08/24 21:33> Family History Family History: Family History Other Unknown family medical history <Roverto Washburn MD - Last Filed: 11/08/24 21:33> Social History Social History: Social History Smoking status: Never smoker Alcohol intake: former Substance use: former Substance use type: opiates Other substance usage details: fentanyl use - patient stated they have not used for over a year Gender identity (if verbalized by the patient): Female Spiritual care concerns: No <Roverto Washburn MD - Last Filed: 11/08/24 21:33> Exam 2 Narrative: GENERAL: [Well-appearing, well-nourished, and in no acute distress.] HEAD: [Normocephalic, atraumatic.] EYES: [PERRLA and EOMI.] ENT: Nares clear, no rhinorrhea or epistaxis. Mucous membranes moist. NECK: Supple. CHEST: [Clear to auscultation. No respiratory distress.] HEART: [Regular rate and rhythm]. No murmur heard. [Normal peripheral pulses.] ABDOMEN: [Soft, nondistended], [nontender], [No rigidity or guarding] EXTREMITIES: Normal range of motion. [No edema.] Right-sided low paraspinal muscle tenderness to palpation/CVA tenderness but no peritonitis. SKIN: Warm, dry, no rash. NEURO: [No focal deficits]. Alert and oriented [x3.] PSYCH: [Normal mood and affect.] <Roverto Washburn MD - Last Filed: 11/08/24 21:33> Course Vital Signs Vital signs: Vital Signs Temperature 37.3 C 11/05/24 04:17 Pulse Rate 106 H 09/26/25 04:17 Respiratory Rate 18 11/05/24 04:17 Blood Pressure 110/73 11/05/24 04:17 Pulse Oximetry 100 11/05/24 04:17 Oxygen Delivery Room Air 11/05/24 04:17 Temperature 36.1 C L 11/07/24 04:50 Pulse Rate 74 11/07/24 04:50 Respiratory Rate 20 11/07/24 04:50 Blood Pressure 102/53 L 11/07/24 04:50 Pulse Oximetry 99 11/07/24 04:50 Oxygen Delivery Room Air 11/07/24 08:00 <Roverto Washburn MD - Last Filed: 11/08/24 21:33> Vital Signs Temperature 37.3 C 11/05/24 04:17 Pulse Rate 106 H 11/05/24 04:17 Respiratory Rate 18 11/05/24 04:17 Blood Pressure 110/73 11/05/24 04:17 Pulse Oximetry 100 11/05/24 04:17 Oxygen Delivery Room Air 11/05/24 04:17 Temperature 36.1 C L 11/07/24 04:50 Pulse Rate 74 11/07/24 04:50 Respiratory Rate 20 11/07/24 04:50 Blood Pressure 102/53 L 11/07/24 04:50 Pulse Oximetry 99 11/07/24 04:50 Oxygen Delivery Room Air 11/07/24 08:00 <Joselito Maria MD - Last Filed: 11/05/24 13:17> MDM - Abdominal Pain MDM Narrative Medical decision making narrative: 29-year-old female with history of polysubstance abuse presenting to the emergency department with right-sided flank pain. States it has been going on for 2 days. Taking ibuprofen at home without any relief. No urinary complaints. No radiating pain. No fever, chills, bowel issues. No nausea or vomiting. States the pain comes and goes in waves. Denies any traumatic injuries. Has had a history of appendectomy and cholecystectomy. No history of kidney stones or urinary infection symptoms. Patient mildly tachycardic likely from pain. No fever hypoxemia. Normal blood pressure. Reproducible pain in the right low back/CVA region. No urinary complaints. Possibility of kidney stone versus cystitis versus pyelonephritis versus musculoskeletal pain. Low suspicion intra-abdominal infection. Laboratory studies obtained she was given Toradol fluids and Zofran and a CT scan was obtained for evaluation. Workup reveals leukocytosis as well as florid urinary tract infection. She is mildly tachycardic and meets SIRS criteria. Lactic acid ordered, additional fluid bolus given. Started on Rocephin. CT scan pending. Signed out to oncoming ER physician pending completion of workup and possible admission based on findings thus far. <Roverto Washburn MD - Last Filed: 11/08/24 21:33> 29-year-old female with history of polysubstance abuse presenting to the emergency department with right-sided flank pain. States it has been going on for 2 days. Taking ibuprofen at home without any relief. No urinary complaints. No radiating pain. No fever, chills, bowel issues. No nausea or vomiting. States the pain comes and goes in waves. Denies any traumatic injuries. Has had a history of appendectomy and cholecystectomy. No history of kidney stones or urinary infection symptoms. Patient mildly tachycardic likely from pain. No fever hypoxemia. Normal blood pressure. Reproducible pain in the right low back/CVA region. No urinary complaints. Possibility of kidney stone versus cystitis versus pyelonephritis versus musculoskeletal pain. Low suspicion intra-abdominal infection. Laboratory studies obtained she was given Toradol fluids and Zofran and a CT scan was obtained for evaluation. Workup reveals leukocytosis as well as florid urinary tract infection. She is mildly tachycardic and meets SIRS criteria. Lactic acid ordered, additional fluid bolus given. Started on Rocephin. CT scan pending. Signed out to oncoming ER physician pending completion of workup and possible admission based on findings thus far. --- Patient is afebrile but does have a leukocytosis of 14.1 hemoglobin 11.7. Patient has no acute abnormalities on her CMP patient's urine is significant for urinary tract infection. Patient was positive for amphetamines. CT abdomen pelvis did show edema of the kidney this may be secondary to her suspected pyelonephritis. Patient did receive 1 g of IV Rocephin. Case was discussed with hospitalist patient was accepted for admission. On re-evaluation patient is resting comfortably. Patient was up to the results of the workup patient was comfortable the plan for admission for IV antibiotics. All questions concerns were addressed. <Joselito Marai MD - Last Filed: 11/05/24 13:17> Differential Diagnosis Differential diagnosis: Likely abdominal pain, acute appendicitis, calculus of kidney, constipation, diverticulitis, pancreatitis, small bowel obstruction and other < Joselito Maria MD - Last Filed: 11/05/24 13:17> Medical Records Attestation: I reviewed the patient's medical records. <Roverto Washburn MD - Last Filed: 11/08/24 21:33> Lab Data Attestation: I reviewed the patient's lab results. <Roverto Washburn MD - Last Filed: 11/08/24 21:33> Result diagrams: 11/06/24 06:01 11/06/24 06:01 <Roverto Washburn MD - Last Filed: 11/08/24 21:33> Labs: Lab Results 11/05/24 11/05/24 11/05/24 Range/Units 04:34 06:27 06:28 WBC 14.1 H (4.5-10.0) K/mm3 RBC 5.06 (4.2-5.4) M/mm3 Hgb 11.7 L (12.0-15.0) g/dL Hct 37.5 (37.0-47.0) % MCV 74.1 L (80-100) fl MCH 23.1 L (26-34) pg MCHC 31.2 L (32-36) g/dl RDW 18.2 H (11.5-14.5) % Plt Count 281 (150-375) k/mm3 MPV 9.6 (7.4-10.4) fl Immature Gran % (Auto) 0.6 H (0-0.5) % Neut % (Auto) 79.5 H (45.5-73.1) % Lymph % (Auto) 12.0 L (18.3-44.2) % [place] % (Auto) 7.2 (2.6-8.5) % Eos % (Auto) 0.4 (0-4.4) % Baso % (Auto) 0.3 (0.2-1.2) % Lymph # (Auto) 1.68 (0.9-3.2) K/mm3 [place] # (Auto) 1.0 H (0.1-0.6) K/mm3 Eos # (Auto) 0.1 (0-0.3) K/mm3 Baso # (Auto) 0.0 (0.0-0.1) K/mm3 Abs Immat Gran (auto) 0.09 H (0.00-0.031) K/mm3 Absolute Neuts (auto) 11.2 H (1.3-6.7) K/mm3 Absolute Nucleated RBC 0.000 (0.0-0.012) K/mm3 Nucleated RBC % 0.0 (0.0-0.2) % Sodium 130 L (137-145) mmol/L Potassium 4.2 (3.4-5.0) mmol/L Chloride 97 L (98-107) mmol/L Carbon Dioxide 26 (22-30) mmol/L Anion Gap 7 (4-12) mmol/L BUN 11 (7-17) mg/dL Creatinine 0.95 (0.7-1.0) mg/dL Estim Creat Clear Calc 71 ml/min Estimated GFR > 60 (59 - ) Glucose 124 H (65-110) mg/dL Lactic Acid (0.7-2.0) mmol/L Calcium 9.3 (8.4-10.2) mg/dL Total Bilirubin 0.5 (0.2-1.3) mg/dL AST 36 (14-36) U/L ALT 26 (6-35) U/L Alkaline Phosphatase 46 (38-126) U/L Total Protein 7.8 (6.3-8.2) g/dL Albumin 4.0 (3.5-5.1) g/dL Lipase 76 (23-300) U/L Urine Color Yellow (Yellow) Urine Appearance Turbid H (Clear) Urine pH 6.5 (5.0-9.0) Ur Specific [place] 1.014 (1.001-1.035) Urine Protein 2+ H (Negative) mg/dL Urine Glucose (UA) Negative (Negative) mg/dL Urine Ketones Negative (Negative) mg/dL Ur Blood (Man) 1+ H (Negative) Urine Nitrate Positive H (Negative) Urine Bilirubin Negative (Negative) Urine Urobilinogen 0.2 (<2.0) mg/dL Leukocyte Esterase Rfl 3+ H (Negative) GENNARO/UL Urine RBC 6-10 H (0-2) /hpf Urine WBC >100 H (0-3) /hpf Ur Squamous Epith Cells Occasional (Few) /hpf Urine Bacteria 4+ /hpf Urine Casts 0-2 POC Urine HCG, Qual Negative (Negative) Urine Opiates Screen Negative (Negative) Urine Methadone Screen Negative (Negative) Ur Barbiturates Screen Negative (Negative) Ur Phencyclidine Scrn Negative (Negative) Ur Amphetamine Screen Positive A (Negative) U Benzodiazepines Scrn Negative (Negative) Urine Cocaine Screen Negative (Negative) U Cannabinoids Screen Negative (Negative) 11/05/24 Range/Units 07:25 WBC (4.5-10.0) K/mm3 RBC (4.2-5.4) M/mm3 Hgb (12.0-15.0) g/dL Hct (37.0-47.0) % MCV (80-100) fl MCH (26-34) pg MCHC (32-36) g/dl RDW (11.5-14.5) % Plt Count (150-375) k/mm3 MPV (7.4-10.4) fl Immature Gran % (Auto) (0-0.5) % Neut % (Auto) (45.5-73.1) % Lymph % (Auto) (18.3-44.2) % [place] % (Auto) (2.6-8.5) % Eos % (Auto) (0-4.4) % Baso % (Auto) (0.2-1.2) % Lymph # (Auto) (0.9-3.2) K/mm3 [place] # (Auto) (0.1-0.6) K/mm3 Eos # (Auto) (0-0.3) K/mm3 Baso # (Auto) (0.0-0.1) K/mm3 Abs Immat Gran (auto) (0.00-0.031) K/mm3 Absolute Neuts (auto) (1.3-6.7) K/mm3 Absolute Nucleated RBC (0.0-0.012) K/mm3 Nucleated RBC % (0.0-0.2) % Sodium (137-145) mmol/L Potassium (3.4-5.0) mmol/L Chloride (98-107) mmol/L Carbon Dioxide (22-30) mmol/L Anion Gap (4-12) mmol/L BUN (7-17) mg/dL Creatinine (0.7-1.0) mg/dL Estim Creat Clear Calc ml/min Estimated GFR (59 - ) Glucose (65-110) mg/dL Lactic Acid 1.0 (0.7-2.0) mmol/L Calcium (8.4-10.2) mg/dL Total Bilirubin (0.2-1.3) mg/dL AST (14-36) U/L ALT (6-35) U/L Alkaline Phosphatase (38-126) U/L Total Protein (6.3-8.2) g/dL Albumin (3.5-5.1) g/dL Lipase (23-300) U/L Urine Color (Yellow) Urine Appearance (Clear) Urine pH (5.0-9.0) Ur Specific [place] (1.001-1.035) Urine Protein (Negative) mg/dL Urine Glucose (UA) (Negative) mg/dL Urine Ketones (Negative) mg/dL Ur Blood (Man) (Negative) Urine Nitrate (Negative) Urine Bilirubin (Negative) Urine Urobilinogen (<2.0) mg/dL Leukocyte Esterase Rfl (Negative) GENNARO/UL Urine RBC (0-2) /hpf Urine WBC (0-3) /hpf Ur Squamous Epith Cells (Few) /hpf Urine Bacteria /hpf Urine Casts POC Urine HCG, Qual (Negative) Urine Opiates Screen (Negative) Urine Methadone Screen (Negative) Ur Barbiturates Screen (Negative) Ur Phencyclidine Scrn (Negative) Ur Amphetamine Screen (Negative) U Benzodiazepines Scrn (Negative) Urine Cocaine Screen (Negative) U Cannabinoids Screen (Negative) <Roverto Washburn MD - Last Filed: 11/08/24 21:33> Lab Results 11/05/24 11/05/24 11/05/24 Range/Units 04:34 06:27 06:28 WBC 14.1 H (4.5-10.0) K/mm3 RBC 5.06 (4.2-5.4) M/mm3 Hgb 11.7 L (12.0-15.0) g/dL Hct 37.5 (37.0-47.0) % MCV 74.1 L (80-100) fl MCH 23.1 L (26-34) pg MCHC 31.2 L (32-36) g/dl RDW 18.2 H (11.5-14.5) % Plt Count 281 (150-375) k/mm3 MPV 9.6 (7.4-10.4) fl Immature Gran % (Auto) 0.6 H (0-0.5) % Neut % (Auto) 79.5 H (45.5-73.1) % Lymph % (Auto) 12.0 L (18.3-44.2) % [place] % (Auto) 7.2 (2.6-8.5) % Eos % (Auto) 0.4 (0-4.4) % Baso % (Auto) 0.3 (0.2-1.2) % Lymph # (Auto) 1.68 (0.9-3.2) K/mm3 [place] # (Auto) 1.0 H (0.1-0.6) K/mm3 Eos # (Auto) 0.1 (0-0.3) K/mm3 Baso # (Auto) 0.0 (0.0-0.1) K/mm3 Abs Immat Gran (auto) 0.09 H (0.00-0.031) K/mm3 Absolute Neuts (auto) 11.2 H (1.3-6.7) K/mm3 Absolute Nucleated RBC 0.000 (0.0-0.012) K/mm3 Nucleated RBC % 0.0 (0.0-0.2) % Sodium 130 L (137-145) mmol/L Potassium 4.2 (3.4-5.0) mmol/L Chloride 97 L (98-107) mmol/L Carbon Dioxide 26 (22-30) mmol/L Anion Gap 7 (4-12) mmol/L BUN 11 (7-17) mg/dL Creatinine 0.95 (0.7-1.0) mg/dL Estim Creat Clear Calc 71 ml/min Estimated GFR > 60 (59 - ) Glucose 124 H (65-110) mg/dL Lactic Acid (0.7-2.0) mmol/L Calcium 9.3 (8.4-10.2) mg/dL Total Bilirubin 0.5 (0.2-1.3) mg/dL AST 36 (14-36) U/L ALT 26 (6-35) U/L Alkaline Phosphatase 46 (38-126) U/L Total Protein 7.8 (6.3-8.2) g/dL Albumin 4.0 (3.5-5.1) g/dL Lipase 76 (23-300) U/L Urine Color Yellow (Yellow) Urine Appearance Turbid H (Clear) Urine pH 6.5 (5.0-9.0) Ur Specific [place] 1.014 (1.001-1.035) Urine Protein 2+ H (Negative) mg/dL Urine Glucose (UA) Negative (Negative) mg/dL Urine Ketones Negative (Negative) mg/dL Ur Blood (Man) 1+ H (Negative) Urine Nitrate Positive H (Negative) Urine Bilirubin Negative (Negative) Urine Urobilinogen 0.2 (<2.0) mg/dL Leukocyte Esterase Rfl 3+ H (Negative) GENNARO/UL Urine RBC 6-10 H (0-2) /hpf Urine WBC >100 H (0-3) /hpf Ur Squamous Epith Cells Occasional (Few) /hpf Urine Bacteria 4+ /hpf Urine Casts 0-2 POC Urine HCG, Qual Negative (Negative) Urine Opiates Screen Negative (Negative) Urine Methadone Screen Negative (Negative) Ur Barbiturates Screen Negative (Negative) Ur Phencyclidine Scrn Negative (Negative) Ur Amphetamine Screen Positive A (Negative) U Benzodiazepines Scrn Negative (Negative) Urine Cocaine Screen Negative (Negative) U Cannabinoids Screen Negative (Negative) 11/05/24 Range/Units 07:25 WBC (4.5-10.0) K/mm3 RBC (4.2-5.4) M/mm3 Hgb (12.0-15.0) g/dL Hct (37.0-47.0) % MCV (80-100) fl MCH (26-34) pg MCHC (32-36) g/dl RDW (11.5-14.5) % Plt Count (150-375) k/mm3 MPV (7.4-10.4) fl Immature Gran % (Auto) (0-0.5) % Neut % (Auto) (45.5-73.1) % Lymph % (Auto) (18.3-44.2) % [place] % (Auto) (2.6-8.5) % Eos % (Auto) (0-4.4) % Baso % (Auto) (0.2-1.2) % Lymph # (Auto) (0.9-3.2) K/mm3 [place] # (Auto) (0.1-0.6) K/mm3 Eos # (Auto) (0-0.3) K/mm3 Baso # (Auto) (0.0-0.1) K/mm3 Abs Immat Gran (auto) (0.00-0.031) K/mm3 Absolute Neuts (auto) (1.3-6.7) K/mm3 Absolute Nucleated RBC (0.0-0.012) K/mm3 Nucleated RBC % (0.0-0.2) % Sodium (137-145) mmol/L Potassium (3.4-5.0) mmol/L Chloride (98-107) mmol/L Carbon Dioxide (22-30) mmol/L Anion Gap (4-12) mmol/L BUN (7-17) mg/dL Creatinine (0.7-1.0) mg/dL Estim Creat Clear Calc ml/min Estimated GFR (59 - ) Glucose (65-110) mg/dL Lactic Acid 1.0 (0.7-2.0) mmol/L Calcium (8.4-10.2) mg/dL Total Bilirubin (0.2-1.3) mg/dL AST (14-36) U/L ALT (6-35) U/L Alkaline Phosphatase (38-126) U/L Total Protein (6.3-8.2) g/dL Albumin (3.5-5.1) g/dL Lipase (23-300) U/L Urine Color (Yellow) Urine Appearance (Clear) Urine pH (5.0-9.0) Ur Specific [place] (1.001-1.035) Urine Protein (Negative) mg/dL Urine Glucose (UA) (Negative) mg/dL Urine Ketones (Negative) mg/dL Ur Blood (Man) (Negative) Urine Nitrate (Negative) Urine Bilirubin (Negative) Urine Urobilinogen (<2.0) mg/dL Leukocyte Esterase Rfl (Negative) GENNARO/UL Urine RBC (0-2) /hpf Urine WBC (0-3) /hpf Ur Squamous Epith Cells (Few) /hpf Urine Bacteria /hpf Urine Casts POC Urine HCG, Qual (Negative) Urine Opiates Screen (Negative) Urine Methadone Screen (Negative) Ur Barbiturates Screen (Negative) Ur Phencyclidine Scrn (Negative) Ur Amphetamine Screen (Negative) U Benzodiazepines Scrn (Negative) Urine Cocaine Screen (Negative) U Cannabinoids Screen (Negative) <Joselito Maria MD - Last Filed: 11/05/24 13:17> Imaging Data Radiologist's impression: ITS Impressions Abdomen/Pelvis CT 11/05/24 08:32 IMPRESSION: 1. Asymmetric edema around right kidney. 2. Small nonobstructing left kidney stone. <Roverto Washburn MD - Last Filed: 11/08/24 21:33> ITS Impressions Abdomen/Pelvis CT 11/05/24 08:32 IMPRESSION: 1. Asymmetric edema around right kidney. 2. Small nonobstructing left kidney stone. <Joselito Maria MD - Last Filed: 11/05/24 13:17> Discharge Plan Discharge Clinical Impression: Acute flank pain, Pyelonephritis <Roverto Washburn MD - Last Filed: 11/08/24 21:33> Patient Disposition: Still a Patient <Roverto Washburn MD - Last Filed: 11/08/24 21:33> Condition: Stable <Roverto Washburn MD - Last Filed: 11/08/24 21:33> Time of Disposition: 07:12 <Roverto Washburn MD - Last Filed: 11/08/24 21:33> 07:12 <Joselito Maria MD - Last Filed: 11/05/24 13:17>
[2024-11-05] MEDS: LACTATED RINGERS 1,000 ML 999 ML IV CONT ×2 (05:26→07:49)
[2024-11-05] MEDS: KETOROLAC 15 MG/ML VIAL (*BKC) IV PUSH ×4 (05:26→23:00)
[2024-11-05] MEDS: ONDANSETRON INJ 4 MG/2 ML VIAL IV PUSH ×2 (05:26→18:19)
[2024-11-05 06:30] LABS: BEDSIDEPREGUCG Negative (Negative)
[2024-11-05 06:45] LABS: Add Urine Microscopic? YES; Glucose Urine UA Negative (Negative); Leukocyte Esterase Ur 3+ LEU/UL (Negative); Nitrate Urine Positive (Negative); Non Pathogenic Casts 0-2; Specific Grav Ur 1.014 (1.001-1.035)
[2024-11-05] MEDS: cefTRIAXone 1 GM in SODIUM CHLORIDE 0.9% IV 50 ML 100 ML IVPB (07:49)
--- NOTE | 2024-11-05 08:30 | PC.NURSE ---
Sleeps unless awaken. In no distress.
[2024-11-05 10:19] LABS: Cannabinoid Screen Urine Negative (Negative)
[2024-11-05 10:22] LABS: Appearance Urine Turbid (Clear)
--- NOTE | 2024-11-05 10:23 | ADMGEN ---
This patient, Raya Ricketts, was admitted to [facility] Surg Room 304-02. Patient/family oriented to hospital policies and general routines including ID bracelet, bed and alarms, visiting hours, pain management, procedures, bathroom and other care routines, personal items, smoking policy, room service/diet, and visiting hours. Information on how to activate the Rapid Response Team has been discussed. Patient/Family are encouraged to report perceived risks to care and to ask questions if they do not understand what they are told or what they should do.
[2024-11-05] MEDS: LACTATED RINGERS 1,000 ML 125 ML IV CONT ×3 (11:04→23:01)
--- NOTE | 2024-11-05 12:24 | P.HP_ITS ---
H&P: HPI History of Present Illness Date/Time: 11/05/24 12:24 Chief Complaint: Right flank pain Narrative: 29-year-old female with history of polysubstance abuse with current methamphetamine use presents the hospital with right flank pain. Patient complains of general malaise fever and chills. She denies withdrawal symptoms. She denies burning with urination. Her complaint a is abdominal pain and right flank plain. She denies left flank pain. Patient's lab work shows leukocytosis of 14.1, anemia 11.7, sodium of 130, chloride of 97, glucose of 124, UA is turbid with positive nitrates and 3+ leukocyte esterase with over 100 WBCs, 4+ bacteria. Urine toxicology positive for amphetamines. CT abdomen and pelvis showed asymmetrical edema around right kidney and small nonobstructing left kidney stone. Patient was started on Rocephin and given 2 L IV fluids in the ED. Review of Systems Review of Systems: 12 systems were reviewed and are negativ e except for as per HPI. [facility] Past Medical History Medical History (Updated 11/05/24 @ 12:36 by Carin Ross, NOAM) Polysubstance abuse Wrist fracture, bilateral Bilateral ankle fractures Toe fracture UTI (urinary tract infection) Wears glasses Surgical History Surgical History Hx of bilateral hip replacements Hx of section x3 History of cholecystectomy Family History Family History Other Unknown family medical history Social History Social History Smoking status: Never smoker Alcohol intake: former Substance use: former Substance use type: opiates Other substance usage details: fentanyl use - patient stated they have not used for over a year Gender identity (if verbalized by the patient): Female Spiritual care concerns: No Meds Home Medications and Allergies Home Medications ?Medication ?Instructions ?Recorded ?Confirmed ?Type naloxone 4 mg/actuation nasal 4 mg intranasal Q2M PRN opioid 07/20/24 11/05/24 Rx spray (Rextovy) overdose #2 ea buprenorphine 8 mg-naloxone 2 mg 1 film sublingual TID PRN 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 Allergies Allergy/AdvReac Type Severity Reaction Status Date / Time bee venom protein (honey bee) Allergy Anaphylaxis Verified 08/16/24 07:44 morphine Allergy ITCH Verified 08/16/24 07:44 Vital Signs Vital Signs - 24 hr 11/05/24 04:17 11/05/24 07:00 11/05/24 07:54 Temperature 99.1 F Pulse Rate 106 H 77 Respiratory Rate 18 18 Blood Pressure 110/73 117/73 Pulse Oximetry 100 100 96 Oxygen Delivery Room Air 11/05/24 07:55 11/05/24 07:56 11/05/24 08:00 Temperature Pulse Rate 96 Respiratory Rate 16 Blood Pressure 111/78 111/78 Pulse Oximetry 100 100 Oxygen Delivery 11/05/24 08:01 11/05/24 08:16 11/05/24 08:17 Temperature Pulse Rate Respiratory Rate Blood Pressure 104/73 110/80 Pulse Oximetry 100 100 100 Oxygen Delivery 11/05/24 09:48 11/05/24 10:33 11/05/24 10:44 Temperature 97.3 F L Pulse Rate 90 88 Respiratory Rate 16 16 Blood Pressure 117/78 103/58 L Pulse Oximetry 97 100 97 Oxygen Delivery Room Air Exam Narrative: General: well appearing, appears stated age. HEENT: normocephalic, atraumatic. Mucous membranes moist. EOMI, PERRLA, bilateral sclera anicteric, no conjunctival injection. Neck supple without JVD, lymphadenopathy, or bruit. Respiratory: clear to ascultation bilaterally. No rales/rhonic/wheezes. Cardiovascular: Regular rate and rhythm, normal S1-S2 upon ascultation. No murmurs, rubs, or clicks. PMI is nondisplaced, capillary refill less than 3 second. Abdomen: Soft, round, no pulsatile masses, nondistended and nontender. No rebound, no guarding. , no hepatosplenomegaly. Bowel sounds present to all four quadrants. No high pitch or tinkling sounds, resonant to percussion. Right CVA tenderness Extremities: No cyanosis, clubbing, or edema present. Pulses are palpable 2/2. Active ROM to all four extremities. Neuro: Alert and orientated x 4. PERRLA. Cranial nerves 2-12 intact without focal deficit. Skin: Warm, dry, and intact, without rash, erythema, or lesion. Psych: pleasant, cooperative, normal speech, normal affect, no hallucinations, no dysarthia H&P: Results Labs Labs: Short CBC 11/05/24 Range/Units 04:34 WBC 14.1 H (4.5-10.0) K/mm3 Hgb 11.7 L (12.0-15.0) g/dL Hct 37.5 (37.0-47.0) % Plt Count 281 (150-375) k/mm3 BMP 11/05/24 04:34 Sodium 130 L Potassium 4.2 Chloride 97 L Carbon Dioxide 26 BUN 11 Creatinine 0.95 Glucose 124 H Calcium 9.3 Liver Function 11/05/24 Range/Units 04:34 Total Bilirubin 0.5 (0.2-1.3) mg/dL AST 36 (14-36) U/L ALT 26 (6-35) U/L Alkaline Phosphatase 46 (38-126) U/L Albumin 4.0 (3.5-5.1) g/dL Urine 11/05/24 Range/Units 06:27 Urine Color Yellow (Yellow) Urine Appearance Turbid H (Clear) Urine pH 6.5 (5.0-9.0) Ur Specific [place] 1.014 (1.001-1.035) Urine Protein 2+ H (Negative) mg/dL Urine Glucose (UA) Negative (Negative) mg/dL Assessment and Plan Assessment and plan (1) Pyelonephritis: Code(s): N12 - Tubulo-interstitial nephritis, not specified as acute or chronic Status: Acute Assessment and Plan: Rocephin IVF Trying to avoid narcotics as patient has a history of polysubstance abuse Toradol and Tylenol Culture and sensitivity pending (2) Polysubstance abuse: Code(s): F19.10 - Other psychoactive substance abuse, uncomplicated Status: Acute Assessment and Plan: U tox is positive for methamphetamines Treat symptoms of withdrawal Patient's home med is non formulary (3) Anemia: Code(s): D64.9 - Anemia, unspecified Status: Acute Assessment and Plan: Anemia workup pending No signs of acute bleeding (4) Hyponatremia: Code(s): E87.1 - Hypo-osmolality and hyponatremia Status: Acute Assessment and Plan: Patient was given 2 L fluids in the ED IVF BMP in the morning Quality VTE Prophylaxis VTE prophylaxis: mechanical ordered and pharmacologic ordered Hospitalist [facility] Advance Care Plan I have confirmed that the patient's Advanced Care Plan is present, code status is documented, or surrogate decision maker is listed in patient medical record.: Yes Medication Reconciliation I have utilized all available resources to obtain, update and review the patients current medications (includes all prescriptions, OTC, herbals, cannabis, and nutritional supplements).: Yes
[2024-11-05] MEDS: ACETAMINOPHEN 325 MG TABLET 650 MG PO (17:45)
[2024-11-06] MEDS: oxyCODONE HCL (*CRX) 5 MG TAB IR PO ×3 (03:15→17:37)
[2024-11-06] MEDS: ACETAMINOPHEN 325 MG TABLET 650 MG PO (04:27)
[2024-11-06] MEDS: KETOROLAC 15 MG/ML VIAL (*BKC) IV PUSH ×3 (05:17→17:37)
[2024-11-06 06:15] VITALS: BP 91/48
[2024-11-06 06:18] VITALS: BP 96/58
[2024-11-06 06:23] LABS: Hematocrit 32.0 % (37.0-47.0); Hemoglobin 9.8 g/dL (12.0-15.0); Immature Granulocyte Percent A 0.6 % (0-0.5); Lymphocytes Absolute Auto 1.25 K/mm3 (0.9-3.2); Mean Corpuscular HGB Conc 30.6 g/dl (32-36); Mean Corpuscular Hemoglobin 23.1 pg (26-34); Mean Corpuscular Volume 75.5 fl (80-100); Nucleated Red Blood Cells Absolute Auto 0.000 K/mm3 (0.0-0.012); Nucleated Red Blood Cells Perc 0.0 % (0.0-0.2); Platelet Count Result 197 k/mm3 (150-375); Red Blood Count 4.24 M/mm3 (4.2-5.4); White Blood Count 10.1 K/mm3 (4.5-10.0)
[2024-11-06 06:47] LABS: Iron < 10 ug/dL (37-170)
[2024-11-06 06:52] LABS: Anion Gap 3 mmol/L (4-12); Blood Urea Nitrogen 8 mg/dL (7-17); Calcium 8.3 mg/dL (8.4-10.2); Carbon Dioxide 26 mmol/L (22-30); Chloride 103 mmol/L (98-107); Estimated CRCL calculation 85 ml/min; Estimated Glomerular Filt Rate > 60; Glucose 119 mg/dL (65-110); Potassium 3.8 mmol/L (3.4-5.0); Sodium 132 mmol/L (137-145)
[2024-11-06 07:30] LABS: Thyroid Stimulating Hormone Reflex 0.398 uIU/mL (0.465-4.68)
[2024-11-06 07:34] LABS: Ferritin 36.10 ng/mL (6.24-137)
[2024-11-06 07:42] LABS: Percent Iron Saturation < 4 % (20-50)
[2024-11-06 08:07] LABS: Free T4 Free Thyroxine Reflex 1.15 ng/dL (0.78-2.19)
[2024-11-06 08:15] LABS: Vitamin B12 408.0 pg/mL (239-931)
[2024-11-06] MEDS: cefTRIAXone 1 GM in SODIUM CHLORIDE 0.9% IV 50 ML 100 ML IVPB (08:52)
[2024-11-06 09:19] LABS: Total Triiodothyronine (T3) 0.63 NG/ML (0.82-1.58)
[2024-11-06] MEDS: LACTATED RINGERS 1,000 ML 125 ML IV CONT ×2 (11:00→19:10)
[2024-11-06 13:11] VITALS: BP 110/76; PULSE 84; RESP 16; TEMP 37.1; O2SAT 100
--- NOTE | 2024-11-06 13:19 | P.PNIM_ITS ---
Progress Note: A&P Assessment and Plan (1) Pyelonephritis: Code(s): N12 - Tubulo-interstitial nephritis, not specified as acute or chronic Status: Acute Assessment and Plan: Rocephin IVF Trying to avoid narcotics as patient has a history of polysubstance abuse Toradol and Tylenol Culture and sensitivity pending (2) Polysubstance abuse: Code(s): F19.10 - Other psychoactive substance abuse, uncomplicated Status: Acute Assessment and Plan: U tox is positive for methamphetamines Treat symptoms of withdrawal Patient's home med is non formulary Check HIV, RPR, Urine for G/C/Trich, Hep C (3) Anemia: Code(s): D64.9 - Anemia, unspecified Status: Acute Assessment and Plan: Anemia workup pending No signs of acute bleeding (4) Hyponatremia: Code(s): E87.1 - Hypo-osmolality and hyponatremia Status: Acute Assessment and Plan: Patient was given 2 L fluids in the ED IVF BMP in the morning Time Spent With Patient Time: 59 minutes Subjective Date/time seen: 11/06/24 13:19 Interval history: VSS. WBC improving Feels right flank pain improving, but not resolved yet. No dysuria Agreeable to STD testing Review of Systems Review of Systems: 12 systems were reviewed and are negativ e except for as per HPI. Exam Narrative: General: well appearing, appears stated age. HEENT: normocephalic, atraumatic. Mucous membranes moist. EOMI, PERRLA, bilatera l sclera anicteric, no conjunctival injection. Neck supple without JVD, lymphadenopathy, or bruit. Respiratory: clear to ascultation bilaterally. No rales/rhonic/wheezes. Cardiovascular: Regular rate and rhythm, normal S1-S2 upon ascultation. No murmurs, rubs, or clicks. PMI is nondisplaced, capillary refill less than 3 second. Abdomen: Soft, round, no pulsatile masses, nondistended and nontender. No rebound, no guarding. , no hepatosplenomegaly. Bowel sounds present to all four quadrants. No high pitch or tinkling sounds, resonant to percussion. Right CVA tenderness Extremities: No cyanosis, clubbing, or edema present. Pulses are palpable 2/2. Active ROM to all four extremities. Neuro: Alert and orientated x 4. PERRLA. Cranial nerves 2-12 intact without focal deficit. Skin: Warm, dry, and intact, without rash, erythema, or lesion. Psych: pleasant, cooperative, normal speech, normal affect, no hallucinations, no dysarthia Objective Data Vital Signs Vital Signs: Vital Signs - 24 hr 11/05/24 14:17 11/05/24 22:00 11/06/24 06:15 Temperature 97.7 F 97.4 F L Pulse Rate 88 76 Respiratory Rate 18 18 Blood Pressure 102/68 100/66 91/48 L Pulse Oximetry 100 100 Oxygen Delivery 11/06/24 06:18 11/06/24 09:00 Temperature Pulse Rate Respiratory Rate Blood Pressure 96/58 L Pulse Oximetry Oxygen Delivery Room Air Intake/Output Intake/Output: Intake & Output 11/03/24 11/04/24 11/05/24 11/06/24 23:59 23:59 23:59 23:59 Intake Total 4213.3 1270 Balance 4213.3 1270 Meds/Results Medications: Active Medications Generic Name Dose Route Start Last Admin Trade Name Freq PRN Reason Stop Dose Admin Acetaminophen 650 mg 11/05/24 12:32 11/06/24 04:27 Acetaminophen 325 Mg Tablet PO 650 mg Q4H PRN Administration Mild Pain (1-3) or Fever Enoxaparin Sodium 40 mg 11/06/24 09:00 11/06/24 09:50 Enoxaparin 40 Mg/0.4 Ml Syringe SUB-Q Not Given DAILY TUNDE Lactated Ringer's 1,000 mls @ 125 mls/hr 11/05/24 09:20 11/06/24 11:00 Lr - Lactated Ringers Iv IV CONT 125 mls/hr .Q8H TUNDE Administration Ceftriaxone Sodium 1 gm/ 50 mls @ 100 mls/hr 11/06/24 09:00 11/06/24 09:22 Sodium Chloride IVPB Infused Q24H TUNDE Infusion Ketorolac Tromethamine 15 mg 11/05/24 12:35 11/06/24 12:59 Ketorolac 15 Mg/Ml Vial (*Bkc) IV PUSH 15 mg Q6HR TUNDE Administration Ondansetron HCl 4 mg 11/05/24 09:19 11/05/24 18:19 Ondansetron Inj 4 Mg/2 Ml Vial IV PUSH 4 mg Q4H PRN Administration Nausea Oxycodone HCl 5 mg 11/05/24 22:43 11/06/24 09:48 Oxycodone Hcl (*Crx) 5 Mg Tab Ir PO 5 mg Q6HR PRN Administration Pain Rated 7-10 Radiology Results: ITS Impressions Abdomen/Pelvis CT 11/05/24 08:32 IMPRESSION: 1. Asymmetric edema around right kidney. 2. Small nonobstructing left kidney stone. Labs Labs: Laboratory Results - last 24 hr 11/06/24 06:01 WBC 10.1 H RBC 4.24 Hgb 9.8 L Hct 32.0 L MCV 75.5 L MCH 23.1 L MCHC 30.6 L RDW 18.1 H Plt Count 197 MPV 9.5 Immature Gran % (Auto) 0.6 H Neut % (Auto) 79.4 H Lymph % (Auto) 12.4 L [place] % (Auto) 6.8 Eos % (Auto) 0.6 Baso % (Auto) 0.2 Lymph # (Auto) 1.25 [place] # (Auto) 0.7 H Eos # (Auto) 0.1 Baso # (Auto) 0.0 Abs Immat Gran (auto) 0.06 H Absolute Neuts (auto) 8.0 H Absolute Nucleated RBC 0.000 Nucleated RBC % 0.0 Sodium 132 L Potassium 3.8 Chloride 103 Carbon Dioxide 26 Anion Gap 3 L BUN 8 Creatinine 0.79 Estim Creat Clear Calc 85 Estimated GFR > 60 Glucose 119 H Calcium 8.3 L Iron < 10 L TIBC 282 % Saturation < 4 L Ferritin 36.10 Vitamin B12 408.0 Folate 4.2 TSH (Reflex) 0.398 L Free T4 1.15 Total T3 0.63 L Quality VTE Prophylaxis VTE prophylaxis: mechanical ordered and pharmacologic ordered
[2024-11-06 20:20] VITALS: BP 105/65; PULSE 107; RESP 16; TEMP 36.1; O2SAT 99
[2024-11-07] MEDS: LACTATED RINGERS 1,000 ML 125 ML IV CONT (01:03)
[2024-11-07] MEDS: KETOROLAC 15 MG/ML VIAL (*BKC) IV PUSH ×2 (01:03→05:56)
[2024-11-07] MEDS: oxyCODONE HCL (*CRX) 5 MG TAB IR PO (01:03)
[2024-11-07 02:38] LABS: Trichomonas Vag PCR NOT DETECTED (NOT DETECTE)
[2024-11-07 04:50] VITALS: BP 102/53; PULSE 74; RESP 20; TEMP 36.1; O2SAT 99
[2024-11-07 07:47] LABS: HIV 1/2 Ab P24 Ag Result Negative (Negative)
[2024-11-07 08:18] LABS: Syphilis IgG/IgM Antibody Non-Reactive (Nonreactive)
[2024-11-07] MEDS: ENOXAPARIN 40 MG/0.4 ML SYRINGE SUB-Q (09:00)
[2024-11-07] MEDS: cefTRIAXone 1 GM in SODIUM CHLORIDE 0.9% IV 50 ML 100 ML IVPB (09:00)
--- NOTE | 2024-11-07 09:02 | P.PNIM_ITS ---
Progress Note: A&P Assessment and Plan (1) Pyelonephritis: Code(s): N12 - Tubulo-interstitial nephritis, not specified as acute or chronic Status: Acute Assessment and Plan: Rocephin IVF Trying to avoid narcotics as patient has a history of polysubstance abuse Toradol and Tylenol Culture and sensitivity pending (2) Polysubstance abuse: Code(s): F19.10 - Other psychoactive substance abuse, uncomplicated Status: Acute Assessment and Plan: U tox is positive for methamphetamines Treat symptoms of withdrawal Patient's home med is non formulary Check HIV, RPR, Urine for G/C/Trich, Hep C (3) Anemia: Code(s): D64.9 - Anemia, unspecified Status: Acute Assessment and Plan: Anemia workup pending No signs of acute bleeding (4) Hyponatremia: Code(s): E87.1 - Hypo-osmolality and hyponatremia Status: Acute Assessment and Plan: Patient was given 2 L fluids in the ED IVF BMP in the morning Subjective Date/time seen: 11/07/24 09:02 Interval history: VSS. WBC improving Feels right flank pain improving, but not resolved yet. No dysuria Agreeable to STD testing. HIV, Hep C, RPR, and urine for G/C/Trich all negative Review of Systems Review of Systems: 12 systems were reviewed and are negativ e except for as per HPI. Exam Narrative: General: well appearing, appears stated age. HEENT: normocephalic, atraumatic. Mucous membranes moist. EOMI, PERRLA, bilateral sclera anicteric, no conjunctival injection. Neck supple without JVD, lymphadenopathy, or bruit. Respiratory: clear to ascultation bilaterally. No rales/rhonic/wheezes. Cardiovascular: Regular rate and rhythm, normal S1-S2 upon ascultation. No murmurs, rubs, or clicks. PMI is nondisplaced, capillary refill less than 3 second. Abdomen: Soft, round, no pulsatile masses, nondistended and nontender. No rebound, no guarding. , no hepatosplenomegaly. Bowel sounds present to all four quadrants. No high pitch or tinkling sounds, resonant to percussion. Right CVA tenderness Extremities: No cyanosis, clubbing, or edema present. Pulses are palpable 2/2. Active ROM to all four extremities. Neuro: Alert and orientated x 4. PERRLA. Cranial nerves 2-12 intact without focal deficit. Skin: Warm, dry, and intact, without rash, erythema, or lesion. Psych: pleasant, cooperative, normal speech, normal affect, no hallucinations, no dysarthia Objective Data Vital Signs Vital Signs: Vital Signs - 24 hr 11/06/24 13:11 11/06/24 20:20 11/07/24 04:50 Temperature 98.7 F 96.9 F L 97 F L Pulse Rate 84 107 H 74 Respiratory Rate 16 16 20 Blood Pressure 110/76 105/65 102/53 L Pulse Oximetry 100 99 99 Intake/Output Intake/Output: Intake & Output 11/04/24 11/05/24 11/06/24 11/07/24 23:59 23:59 23:59 23:59 Intake Total 4213.3 2890 1135.4 Balance 4213.3 2890 1135.4 Meds/Results Medications: Active Medications Generic Name Dose Route Start Last Admin Trade Name Freq PRN Reason Stop Dose Admin Acetaminophen 650 mg 11/05/24 12:32 11/06/24 04:27 Acetaminophen 325 Mg Tablet PO 650 mg Q4H PRN Administration Mild Pain (1-3) or Fever Enoxaparin Sodium 40 mg 11/06/24 09:00 11/07/24 09:00 Enoxaparin 40 Mg/0.4 Ml Syringe SUB-Q 40 mg DAILY TUNDE Administration Lactated Ringer's 1,000 mls @ 125 mls/hr 11/05/24 09:20 11/07/24 01:03 Lr - Lactated Ringers Iv IV CONT 125 mls/hr .Q8H TUNDE Administration Ceftriaxone Sodium 1 gm/ 50 mls @ 100 mls/hr 11/06/24 09:00 11/07/24 09:00 Sodium Chloride IVPB 100 mls/hr Q24H TUNDE Administration Ketorolac Tromethamine 15 mg 11/05/24 12:35 11/07/24 05:56 Ketorolac 15 Mg/Ml Vial (*Bkc) IV PUSH 15 mg Q6HR TUNDE Administration Ondansetron HCl 4 mg 11/05/24 09:19 11/05/24 18:19 Ondansetron Inj 4 Mg/2 Ml Vial IV PUSH 4 mg Q4H PRN Administration Nausea Oxycodone HCl 5 mg 11/05/24 22:43 11/07/24 01:03 Oxycodone Hcl (*Crx) 5 Mg Tab Ir PO 5 mg Q6HR PRN Administration Pain Rated 7-10 Radiology Results: ITS Impressions Abdomen/Pelvis CT 11/05/24 08:32 IMPRESSION: 1. Asymmetric edema around right kidney. 2. Small nonobstructing left kidney stone. Labs Labs: Laboratory Results - last 24 hr 11/06/24 11/06/24 11/07/24 05:58 06:01 01:23 Total T3 0.63 L Syphilis IgG/IgM Ab Non-reactive C. trachomatis (PCR) Not detected Hepatitis C Ab Screen Negative HIV 1&2 Ab/P24 Ag 4thGn Negative N. gonorrhoeae (PCR) Not detected T. vaginalis (PCR) Not detected Quality VTE Prophylaxis VTE prophylaxis: mechanical ordered and pharmacologic ordered
--- NOTE | 2024-11-07 09:51 | P.DS_ITS ---
DS: Admitting Diagnosis Discharge Date 11/07/2024 Admitting Diagnosis Pyelonephritis DS: Discharge Diagnosis Discharge Diagnosis (1) Acute pyelonephritis: Code(s): N10 - Acute pyelonephritis Status: Acute (2) Iron deficiency anemia: Code(s): D50.9 - Iron deficiency anemia, unspecified Status: Acute DS: Summary Hospital Course Reason for hospitalization: Copied from [facility] 11/05: 29-year-old female with history of polysubstance abuse with current methamphetamine use presents the hospital with right flank pain. Patient complains of general malaise fever and chills. She denies withdrawal symptoms. She denies burning with urination. Her complaint a is abdominal pain and right flank plain. She denies left flank pain. Patient's lab work shows leukocytosis of 14.1, anemia 11.7, sodium of 130, chloride of 97, glucose of 124, UA is turbid with positive nitrates and 3+ leukocyte esterase with over 100 WBCs, 4+ bacteria. Urine toxicology positive for amphetamines. CT abdomen and pelvis showed asymmetrical edema around right kidney and small nonobstructing left kidney stone. Patient was started on Rocephin and given 2 L IV fluids in the ED. Hospital Course: Acute Pyelonephritis: Improving during admission with Rocephin and IV fluids. VSS. WBC improving. No dysuria Right flank resolving. No report of pain am prior to discharge. Trying to avoid narcotics as patient has a history of polysubstance abuse. Continued toradol and Tylenol Growing GNP's. Did not wish to wait for susceptibilities, Received 2 doses of Ceftiraxone. Continued Bactrim for 5 more days Polysubstance abuse: U tox is positive for methamphetamines Treat symptoms of withdrawal Patient's home med is non formulary Agreeable to STD testing. HIV, Hep C, RPR, and urine for G/C/Trich all negative Did not discharge with opiates Iron deficiency Anemia: No signs of acute bleeding Iron deficient on labs, start daily iron in a week Follow up CBC in 1-2 weeks Follow up with gynecology Hgb/Hct 9.8/32 at discharge Hyponatremia: Sodium 130<132 Repeat in a week Patient was given 2 L fluids in the ED Status at Discharge Cognitive/behavioral status at discharge: A&Ox4 Time Spent with Patient Time attestation: Total time spent providing and/or coordinating discharge services:58 minutes Exam Narrative: General - Awake and alert. No acute distress Eyes - PERRLA, EOM intact ENT - No thrush, No erythema. Poor dentition Neck - No noticeable or palpable swelling Lymph Nodes - No lymphadenopathy Cardiovascular - RRR no m/r/g, no JVD Lungs: Clear to auscultation, No wheezing, use of accessory muscles, no crackles Skin - Skin warm and dry, no wounds or rashes Abdomen - Normal bowel sounds, abdomen soft and nontender Extremities - No edema, cyanosis or clubbing Musculoskeletal - 5/5 strength, normal range of motion, no swollen or erythematous joints. Neurological ? Alert and oriented x 3, CN 2-12 grossly intact. Psych: Normal mood and affect DS: Data Data Completed and Pending Labs on day of discharge: Labs from last 24 hours 11/07/24 11/06/24 11/06/24 01:23 06:01 05:58 Syphilis IgG/IgM Ab Non-reactive C. trachomatis (PCR) Not detected Hepatitis C Ab Screen Negative HIV 1&2 Ab/P24 Ag 4thGn Negative N. gonorrhoeae (PCR) Not detected T. vaginalis (PCR) Not detected Preliminary micro results at discharge 11/05/24 06:27 - Preliminary Urine Clean Catch Gram negative bacilli isolated Discharge Plan Discharge Attending physician on discharge: Libby Salas Consulting providers: Chin Gayle; Libby Salas Discharging Clinician: Libby Salas Anticipated Discharge Date/Time: 11/07/24 10:01 Patient Disposition: Home Activity: may shower Diet: regular Discharge Instructions: Follow up with your PCP in 1-2 weeks. Come back to the hospital if you have pain that continues to get worse instead of better or for fever/chills with temp >101. Also monitor for dizziness. If your urine cultures are resistant to bactrim, you would need a different antibiotic. Will send a prescription to your pharmacy and call you if that happens. In some cases IV antibiotics are necessary and you would have to come back to the hospital. Drink 2 liters of water a day for the next 6 days You were iron deficient on labs, sent daily iron. Start after you complete antibiotics Recommend repeat labs in 1-2 weeks to check your blood count and follow up electrolytes and kidney function Patient Instructions: Antibiotic Form Patient Language: Lithuanian Stand Alone Forms: General Discharge Information Follow-up/Referrals: PHYSICIAN,FILTER PLANT SUPERVISOR [Primary Care Provider, Internal Medicine] - 2 Weeks Discharge Medications: New acetaminophen 325 mg Tablet 1,000 mg PO Q6H PRN (Reason: Mild Pain (1-3) Or Fever) Qty: 40 0RF sulfamethoxazole-trimethoprim [Bactrim DS] 800-160 mg tablet 2 tablet PO Q12H Qty: 20 0RF Rx Instructions: Start 11/08 and take for 5 days ibuprofen 800 mg tablet 800 mg PO Q8H PRN (Reason: pain) Qty: 10 0RF acetaminophen 500 mg capsule 1,000 mg PO Q6H PRN (Reason: pain) Qty: 30 0RF ferrous sulfate [FeroSul] 325 mg (65 mg iron) tablet 325 mg PO DAILY Qty: 30 0RF Continued naloxone [Rextovy] 4 mg/actuation spray,non-aerosol 4 mg intranasal Q2M PRN (Reason: opioid overdose) Qty: 2 0RF Rx Instructions: spray 1 dose into ONE nostril; alternate nostrils w each dose until help arrives buprenorphine-naloxone 8-2 mg film 1 film sublingual TID PRN (Reason: fentanyl addiction ) Other Ambulatory Orders: Basic Metabolic Panel (Routine) Timeframe: 1 Week Location: Determined by Patient Ordered By: Libby Salas Complete Blood Count with Diff (Routine) Timeframe: 1 Week Location: Determined by Patient Ordered By: Libby Salas Date of admission: 11/05/24 09:19 Primary Care Provider: PHYSICIAN,[employer] PLANT SUPERVISOR Admitting Provider: Christoph Rich Attending physician on admission: Christoph Rich Condition: Stable Quality VTE Prophylaxis VTE prophylaxis: pharmacologic ordered
== END 2024-11-07 12:16 | disposition home or self-care (01) ==
LOC: ANHED 07:12 → ANH3MEDSUR 09:38
PROVIDERS: Emergency Medicine; Nurse Practitioner Acute Care; Nurse Practitioner Gerontology; Admitting Provider Internal Medicine; Emergency Provider Student in an Organized Health Care Education/Training Program; Visit Provider Internal Medicine
DX: N10 Acute pyelonephritis (principal); N12 Tubulo-interstitial nephritis, not specified as acute or chronic; N20.0 Calculus of kidney; D50.9 Iron deficiency anemia, unspecified; E87.1 Hypo-osmolality and hyponatremia; D72.829 Elevated white blood cell count, unspecified; F19.10 Other psychoactive substance abuse, uncomplicated; Z96.643 Presence of artificial hip joint, bilateral; Z79.891 Long term (current) use of opiate analgesic; Z87.81 Personal history of (healed) traumatic fracture; Z90.49 Acquired absence of other specified parts of digestive tract
CPT/HCPCS: 36415; 74176; 80048; 80053; 80307; 81001; 81025; 82607; 82728; 82746; 83540; 83550; 83605; 83690; 84439; 84443; 84480; 85025; 86593; 86703; 86803; 87040; 87086; 87186; 87491; 87591; 87661; 96361; 96365; 96372; 96374; 96375; 96376; 99285; A9270; G0378; G0432; J0696; J1650; J1885; J2405; J7120